=== PATIENT | female | born 1965 | race African-American/Black ===

== ENCOUNTER 2018-09-21 11:43 | Emergency (ER) | payer OTHER ==
[~2018-09-21] VITALS: Ht 157.5 cm; Wt 72.1 kg
[2018-09-21 12:02] VITALS: BP 139/78
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
[2018-09-21] MEDS ORDERED: LEVE500T56 PO (12:07)
== END 2018-09-21 12:10 | disposition home or self-care (01) ==
LOC: ER 11:43
DX: R56.9 Unspecified convulsions (principal); Z76.0 Encounter for issue of repeat prescription; Z00.8 Encounter for other general examination; J44.9 Chronic obstructive pulmonary disease, unspecified; Z91.041 Radiographic dye allergy status
CPT/HCPCS: 99284

== ENCOUNTER 2018-10-17 18:13 | Observation (INO) | payer OTHER ==
[~2018-10-17] VITALS: Ht 154.9 cm; Wt 49.1 kg
[~2018-10-17 18:13] MED LIST: LEVE500T56 PO
[2018-10-17] MEDS ORDERED: IV NORMAL SALINE 1000ML BAG 1,000 ML IV ONE (19:00)
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
[2018-10-17 20:10] LABS: BASO # 0.1 x10^3/uL (0.0-0.2); BASO % 1 % (0-3); EOS # 0.1 x10^3/uL (0.0-0.7); EOS % 1 % (0-3); HEMATOCRIT 44.3 % (36.0-47.0); HEMOGLOBIN 14.4 g/dL (12.0-15.5); LYMPH # 2.9 x10^3/uL (1.0-4.8); LYMPH % 24 % (24-48); MEAN CORPUSCULAR HEMOGLOBIN 30 pg (25-35); MEAN CORPUSCULAR HGB CONC 33 g/dL (31-37); MEAN CORPUSCULAR VOLUME 93 fL (79-100); MONO # 0.6 x10^3/uL (0.0-1.1); MONO % 5 % (0-9); NEUT # 8.1 x10^3uL (1.8-7.7); NEUT % 69 % (31-73); PLATELET COUNT 246 x10^3/uL (140-400); RED BLOOD COUNT 4.75 x10^6/uL (3.50-5.40); WHITE BLOOD COUNT 11.8 x10^3/uL (4.0-11.0)
[2018-10-17 20:18] LABS: BILIRUBIN,URINE NEGATIVE (NEG); CLARITY,URINE CLEAR; COLOR,URINE YELLOW; NITRITE,URINE NEGATIVE (NEG); PROTEIN,URINE NEGATIVE (NEG-TRACE)
[2018-10-17 20:29] LABS: BARBITURATES NEG (NEG); BENZODIAZEPINES NEG (NEG); CANNABINOIDS POS (NEG); COCAINE NEG (NEG); METHADONE NEG (NEG); OPIATES NEG (NEG); PHENCYCLIDINE NEG (NEG)
[2018-10-17 20:30] LABS: HYALINE CASTS, URINE FEW /HPF; RBC,URINE OCC /HPF (0-2); SQUAMOUS EPITHELIAL CELL,UR FEW /LPF
[2018-10-17 20:31] LABS: AMPHETAMINE/METHAMPHETAMINE NEG (NEG); BACTERIA,URINE 0 /HPF (0-FEW); WBC,URINE OCC /HPF (0-4); YEAST,URINE PRESENT /HPF
[2018-10-17 21:02] LABS: CALCIUM 9.4 mg/dL (8.5-10.1); CREATININE 0.7 mg/dL (0.6-1.0); GFR 105.1; POTASSIUM 3.4 mmol/L (3.5-5.1)
[2018-10-17 21:08] LABS: ALBUMIN 3.7 g/dL (3.4-5.0); ALBUMIN/GLOBULIN RATIO 0.8 (1.0-1.7); TOTAL BILIRUBIN 0.3 mg/dL (0.2-1.0); TOTAL PROTEIN 8.3 g/dL (6.4-8.2)
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
[2018-10-18] MEDS ORDERED: HYDROcodone/APAP 5/325MG 1 TAB TABLET PO ONE
[2018-10-18] MEDS ORDERED: ACETAMINOPHEN 325 MG TABLET. PO PRN (01:00)
--- NOTE | 2018-10-18 01:20 | NUR ---
The patient, HUAN HARRELL, 53 y/o, F admitted by CAROLINE PEREYRA MD, was given written information regarding hospital policies, unit procedures and contact persons. Valuables were checked and left with patient. Pt orientated to room, call light, tv, and bathroom. Advised pt to call before getting out of bed.
[2018-10-18 03:00] VITALS: BP 108/63
--- NOTE | 2018-10-18 06:49 | NUR ---
Pt son called and would like a call from the nurse or SW regarding her care. Mr. Dyson is pt POA [phone]
[2018-10-18 07:00] VITALS: BP 115/77
--- NOTE | 2018-10-18 07:09 | EKG ---
[facility] [address] [place] [address] Test Date: 2018-10-17 Test Time: 19:34:18 Pat Name: HUAN HARRELL Department: Room: 538 1 Gender: F Center Medical Specialist: ALONSO : 1965 Requested By: SHADI ELDRIDGE Order Number: [id number] Reading MD: Michael Carlson MD Measurements Intervals [place] Rate: 91 P: 66 VA: 154 QRS: 39 QRSD: 70 T: 69 QT: 358 QTc: 442 Interpretive Statements SINUS RHYTHM Electronically Signed On 10-29-2018 10:04:26 CDT by Michael Carlson MD
--- NOTE | 2018-10-18 08:09 | RAD ---
Left rib series and single view Chest radiograph 10/17/2018 6:51 PM INDICATION: Fall with left rib pain, confusion COMPARISON: May 12, 2015 chest radiograph TECHNIQUE: Single view chest and 2 dedicated views of the left ribs are provided. FINDINGS: The cardiomediastinal silhouette is within normal limits. There are no pleural effusions. There is no pulmonary vascular congestion. There is no pneumothorax. The lungs are clear. No significant osseous abnormality is identified. No acutely displaced left-sided rib fracture is identified. IMPRESSION: No acute cardiopulmonary process. No acutely displaced left-sided rib fracture. Electronically signed by: Alexus Salazar MD (10/18/2018 8:06 AM) [id number]
[2018-10-18] MEDS ORDERED: ONDANSETRON ODT 4 MG TAB.RAPDIS. PO PRN (08:45)
[2018-10-18] MEDS ORDERED: ONDANSETRON PF 4 MG/2 ML VIAL. IV PRN (08:45)
[2018-10-18] MEDS ORDERED: POTASSIUM CHLORIDE 20 MEQ TABLET.ER. PO ONE (09:00)
[2018-10-18] MEDS: levETIRAcetam 500 MG TABLET PO SCH ×2 (09:13→20:05)
[2018-10-18 11:00] VITALS: BP 114/71
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
[2018-10-18] MEDS ORDERED: NICOTINE POLACRILEX 2MG GUM PACKAGE of 12. BC PRN (12:15)
[2018-10-18] MEDS: NICOTINE 21MG PATCH. TD SCH (13:00)
[2018-10-18] MEDS: HYDROcodone/APAP 5/325MG 1 TAB TABLET PO PRN ×2 (13:01→20:05)
[2018-10-18 15:00] VITALS: BP 125/88
--- NOTE | 2018-10-18 15:19 | NUR ---
SW consulted for dc needs. Spoke with pt and son in room who requested NH Placement. She states she has been in a NH a while back for two years and is not sure she is able to take care of herself at home. Son also discussed about concerns about his mother living at home and believes she needs placement. He also reported he is DPOA and will bring paperwork. SW discussed benefits and options. Pt and son agreeable with SW faxing referral to various LTC facilities. Referral faxed to [facility], [facility], [facility], [facility], [facility], and [facility]. Pt admission and acceptance pending. COLUMBA RN and Physician.
--- NOTE | 2018-10-18 16:37 | NUR ---
Pt seen by Chris from [facility] and they reported they will notify SW tomorrow morning regarding finial decision. They stated there is a possibility that they will be able to take her after confirming with administration tomorrow. Will continue to follow.
[2018-10-18 19:00] VITALS: BP 126/80
[2018-10-18 23:00] VITALS: BP 107/58
[2018-10-19 02:50] VITALS: BP 107/64
[2018-10-19 07:00] VITALS: BP 130/77
[2018-10-19] MEDS: NICOTINE 21MG PATCH. TD SCH (09:00)
[2018-10-19] MEDS: levETIRAcetam 500 MG TABLET PO SCH (09:01)
[2018-10-19] MEDS: HYDROcodone/APAP 5/325MG 1 TAB TABLET PO PRN (09:09)
--- NOTE | 2018-10-19 09:26 | NUR ---
IP: Pt's hx of mrsa was in left leg wound in 2012. Pt is now a left leg amputee with no reoccurrence of MDRO's. Flag removed and pt's contact precautions may be discontinued at this time.
--- NOTE | 2018-10-19 10:07 | PDOC ---
PROGRESS NOTES History of Present Illness History of Present Illness Assessment/Plan Assessment/Plan Fall with no injuries Emphysematous lungs in a smoker Positive cannabinoids Leukocytosis with negative signs of infection Mild hypokalemia, replaced Left leg amputee Seizures chronic on Keppra Generalized weakness, fall risk MSK pains Plan: observation status, PT OT, social work consult for the above social needs Counseled her on her cannabinoids cessation and smoking Nicotine patch Rx wheelchair on chart No new home meds DW Rn at bedside d/c today to LTC D/C PLANNING 33 MIN Vitals Vitals Vital Signs Date Time Temp Pulse Resp B/P (MAP) Pulse Ox O2 Delivery O2 Flow Rate FiO2 10/19/18 09:09 14 Room Air 10/19/18 07:00 98.3 75 130/77 (94) 90 98.3 Physical Exam Physical Exam General: Alert, Oriented X3, Cooperative, No acute distress HEENT: Atraumatic, PERRLA, EOMI Lungs: Clear to auscultation, Normal air movement Heart: S1S2, RRR, no thrills, no rubs, no gallops, no murmurs Cardiovascular: S1, S2 General: Alert, Oriented X3, Cooperative, No acute distress Heart: Regular rate Lungs: Clear Abdomen: Normal bowel sounds, Soft, No tenderness, No hepatosplenomegaly, No masses Extremities: Other (left leg amputee) Skin: No rashes, No breakdown, No significant lesion Labs LABS Other Prior Level of Function Information * family reports independent with transfer and w/c mobility, current w/c has only 1 brake working, requesting new w/c, completes dressing,toileting, and bathing independently with 1 assist for transfer out of tub, pt interested in transfer to a facility that provides increased level of care Level of Consciousness * Alert Follows Direction * Complex Behavior * Cooperative Activity Tolerance/ Vitals * no signs or symptoms of distress Strength * Pt able to stand, povot and hop on right LE Sitting Balance * 5 moves >2" all planes Standing Balance * 2+ balances w/one UE Pain Location * pain management via RN and physician Transfer Assistance Required * Independent Transfer Type * Stand-Step Transfer Comments * Pt independent with transfers and able to take several hops and pivots to get to chair across form her. Pt is functioning grossly at baseline. Pt will need a new wheelchair or will need hers repaired as she reports that hers is broken. Clinical Presentation * Stable Evaluation Complexity Level * Low Complexity Pt/caregiver agrees with plan of care/goals * Yes Patient condition at conclusion of therapy * Pt in bed * Call light in reach * Phone in reach * PtIn no apparent distress * Pt denies further needs No Further Skilled P.T. Intervention Required * Eval only-No PT Needs Discharge Recommendations * Home with Assistance * Assisted Living Discharge Recommendation - DME * Wheelchair Assessment and Plan Assessmemt and Plan Problems Medical Problems: (1) Case management patient Status: Acute (2) Fall Status: Acute Comment Review of Relevant I have reviewed the following items edward (where applicable) has been applied. Labs Laboratory Tests Test 10/17/18 20:02 10/17/18 20:07 10/17/18 20:30 White Blood Count 11.8 x10^3/uL (4.0-11.0) Red Blood Count 4.75 x10^6/uL (3.50-5.40) Hemoglobin 14.4 g/dL (12.0-15.5) Hematocrit 44.3 % (36.0-47.0) Mean Corpuscular Volume 93 fL (79-100) Mean Corpuscular Hemoglobin 30 pg (25-35) Mean Corpuscular Hemoglobin Concent 33 g/dL (31-37) Red Cell Distribution Width 15.0 % (11.5-14.5) Platelet Count 246 x10^3/uL (140-400) Neutrophils (%) (Auto) 69 % (31-73) Lymphocytes (%) (Auto) 24 % (24-48) Monocytes (%) (Auto) 5 % (0-9) Eosinophils (%) (Auto) 1 % (0-3) Basophils (%) (Auto) 1 % (0-3) Neutrophils # (Auto) 8.1 x10^3uL (1.8-7.7) Lymphocytes # (Auto) 2.9 x10^3/uL (1.0-4.8) Monocytes # (Auto) 0.6 x10^3/uL (0.0-1.1) Eosinophils # (Auto) 0.1 x10^3/uL (0.0-0.7) Basophils # (Auto) 0.1 x10^3/uL (0.0-0.2) Urine Collection Type Unknown Urine Color Yellow Urine Clarity Clear Urine pH 6.0 Urine Specific [place] 1.025 Urine Protein Negative mg/dL (NEG-TRACE) Urine Glucose (UA) Negative mg/dL (NEG) Urine Ketones (Stick) Negative mg/dL (NEG) Urine Blood Negative (NEG) Urine Nitrite Negative (NEG) Urine Bilirubin Negative (NEG) Urine Urobilinogen Dipstick 1.0 mg/dL (0.2 mg/dL) Urine Leukocyte Esterase Negative (NEG) Urine RBC Occ /HPF (0-2) Urine WBC Occ /HPF (0-4) Urine Squamous Epithelial Cells Few /LPF Urine Bacteria 0 /HPF (0-FEW) Urine Hyaline Casts Few /HPF Urine Mucus Mod /LPF Urine Yeast Present /HPF Urine Opiates Screen Neg (NEG) Urine Methadone Screen Neg (NEG) Urine Barbiturates Neg (NEG) Urine Phencyclidine Screen Neg (NEG) Urine Amphetamine/Methamphetamine Neg (NEG) Urine Benzodiazepines Screen Neg (NEG) Urine Cocaine Screen Neg (NEG) Urine Cannabinoids Screen Pos (NEG) Urine Ethyl Alcohol Neg (NEG) Sodium Level 137 mmol/L (136-145) Potassium Level 3.4 mmol/L (3.5-5.1) Chloride Level 100 mmol/L (98-107) Carbon Dioxide Level 26 mmol/L (21-32) Anion Gap 11 (6-14) Blood Urea Nitrogen 14 mg/dL (7-20) Creatinine 0.7 mg/dL (0.6-1.0) Estimated GFR (Cockcroft-Gault) 105.1 BUN/Creatinine Ratio 20 (6-20) Glucose Level 86 mg/dL (70-99) Calcium Level 9.4 mg/dL (8.5-10.1) Magnesium Level 2.0 mg/dL (1.8-2.4) Total Bilirubin 0.3 mg/dL (0.2-1.0) Aspartate Amino Transf (AST/SGOT) 15 U/L (15-37) Alanine Aminotransferase (ALT/SGPT) 17 U/L (14-59) Alkaline Phosphatase 103 U/L (46-116) Troponin I Quantitative < 0.017 ng/mL (0.000-0.055) Total Protein 8.3 g/dL (6.4-8.2) Albumin 3.7 g/dL (3.4-5.0) Albumin/Globulin Ratio 0.8 (1.0-1.7) Ethyl Alcohol Level < 10 mg/dL (0-10) Medications Current Medications Sodium Chloride 1,000 ml @ 1,000 mls/hr 1X ONCE IV Last administered on at 20:38; Start 10/17/18 at 19:00; Stop 10/17/18 at 19:59; Status DC Acetaminophen/ Hydrocodone Bitart (Lortab 5/325) 1 tab 1X ONCE PO Last administered on 10/18/18at 00:48; Start 10/18/18 at 00:00; Stop 10/18/18 at 00:01 ; Status DC Acetaminophen (Tylenol) 650 mg PRN Q4HRS PRN PO MILD PAIN; Start 10/18/18 at 01 :00; Stop 10/19/18 at 00:59; Status DC Ondansetron HCl (Zofran) 4 mg PRN Q6HRS PRN IV NAUSEA/VOMITING; Start 10/18/18 at 08:45 Ondansetron HCl (Zofran Odt) 4 mg PRN Q6HRS PRN PO NAUSEA/VOMITING; Start 10/18 at 08:45 Acetaminophen/ Hydrocodone Bitart (Lortab 5/325) 1 tab PRN Q4HRS PRN PO PAIN Last administered on 10/19/18at 09:09; Start 10/18/18 at 08:45 Potassium Chloride (Klor-Con) 40 meq 1X ONCE PO Last administered on at 09:13; Start 10/18/18 at 09:00; Stop 10/18/18 at 09:01; Status DC Levetiracetam (Keppra) 500 mg BID PO Last administered on 10/19/18at 09:01; Start 10/18/18 at 09:00 Nicotine (Nicoderm Cq 21mg) 1 patch DAILY TD Last administered on 10/18/18at 13: 00; Start 10/18/18 at 12:15 Nicotine Polacrilex (Nicorette Gum) 1 each PRN Q1HR PRN BC SMOKING CESSATION; Start 10/18/18 at 12:15 Active Scripts Active Keppra (Levetiracetam) 500 Mg Tablet 1 Tab PO BID 7 Days Reported No Known Medications Prior To Admisstion (Info) Each 1 Each MC Vitals/I & O Vital Sign - Last 24 Hours 10/18/18 10/18/18 10/18/18 10/18/18 11:00 13:01 15:00 19:00 Temp 98.4 98.8 98.9 98.4 98.8 98.9 Pulse 78 86 73 Resp 20 20 18 B/P (MAP) 114/71 (85) 125/88 (100) 126/80 (95) Pulse Ox 93 92 92 O2 Delivery Room Air Room Air Room Air Room Air 10/18/18 10/18/18 10/18/18 10/18/18 20:05 20:15 21:00 23:00 Temp 98.4 98.4 Pulse 67 Resp 18 B/P (MAP) 107/58 (74) Pulse Ox 90 O2 Delivery Room Air Room Air Room Air Room Air 10/19/18 10/19/18 10/19/18 02:50 07:00 09:09 Temp 98.3 98.3 98.3 98.3 Pulse 69 75 Resp 18 18 14 B/P (MAP) 107/64 (78) 130/77 (94) Pulse Ox 90 90 O2 Delivery Room Air Room Air Room Air Intake and Output 10/18/18 10/18/18 10/19/18 15:00 23:00 07:00 Intake Total 240 ml 120 ml 0 ml Balance 240 ml 120 ml 0 ml OH ORTIZ MD Oct 19, 2018 10:07
[2018-10-19 11:00] VITALS: BP 140/75
[2018-10-19] MEDS ORDERED: POTASSIUM CHLORIDE 20 MEQ TABLET.ER. PO ONE (11:00)
--- NOTE | 2018-10-19 11:19 | PDOC3 ---
Discharge Summary Date of Admission: Oct 17, 2018 Date of Discharge: Oct 19, 2018 Follow-Up: 1-2 days Admitting Diagnosis comment: DISCHARGE DX Assessment/Plan Fall with no injuries Emphysematous lungs in a smoker Positive cannabinoids Leukocytosis with negative signs of infection Mild hypokalemia, replaced Left leg amputee Seizures chronic on Keppra Generalized weakness, fall risk MSK pains Plan: observation status, PT OT, social work consult for the above social needs Counseled her on her cannabinoids cessation and smoking Nicotine patch Rx wheelchair on chart No new home meds d/c today to LTC D/C PLANNING 33 MIN Vitals Vitals Vital Signs Date Time Temp Pulse Resp B/P (MAP) Pulse Ox O2 Delivery O2 Flow Rate FiO2 10/19/18 09:09 14 Room Air 10/19/18 07:00 98.3 75 130/77 (94) 90 98.3 Physical Exam Physical Exam General: Alert, Oriented X3, Cooperative, No acute distress HEENT: Atraumatic, PERRLA, EOMI Lungs: Clear to auscultation, Normal air movement Heart: S1S2, RRR, no thrills, no rubs, no gallops, no murmurs Cardiovascular: S1, S2 General: Alert, Oriented X3, Cooperative, No acute distress Heart: Regular rate Lungs: Clear Abdomen: Normal bowel sounds, Soft, No tenderness, No hepatosplenomegaly, No masses Extremities: Other (left leg amputee) Skin: No rashes, No breakdown, No significant lesion Labs LABS Other Prior Level of Function Information * family reports independent with transfer and w/c mobility, current w/c has only 1 brake working, requesting new w/c, completes dressing,toileting, and bathing independently with 1 assist for transfer out of tub, pt interested in transfer to a facility that provides increased level of care Level of Consciousness * Alert Follows Direction * Complex Behavior * Cooperative Activity Tolerance/ Vitals * no signs or symptoms of distress Strength * Pt able to stand, povot and hop on right LE Sitting Balance * 5 moves >2" all planes Standing Balance * 2+ balances w/one UE Pain Location * pain management via RN and physician Transfer Assistance Required * Independent Transfer Type * Stand-Step Transfer Comments * Pt independent with transfers and able to take several hops and pivots to get to chair across form her. Pt is functioning grossly at baseline. Pt will need a new wheelchair or will need hers repaired as she reports that hers is broken. Clinical Presentation * Stable Evaluation Complexity Level * Low Complexity Pt/caregiver agrees with plan of care/goals * Yes Patient condition at conclusion of therapy * Pt in bed * Call light in reach * Phone in reach * PtIn no apparent distress * Pt denies further needs No Further Skilled P.T. Intervention Required * Eval only-No PT Needs Discharge Recommendations * Home with Assistance * Assisted Living Discharge Recommendation - DME * Wheelchair FINAL DIAGNOSIS Problems Medical Problems: (1) Case management patient Status: Acute (2) Fall Status: Acute Brief Hospital Course Ms. Fajardo is a 53 old [sex] who presented with [ FALLS] CONDITION AT DISCHARGE: Improved Discharge Medications Current Medications Sodium Chloride 1,000 ml @ 1,000 mls/hr 1X ONCE IV Last administered on at 20:38; Start 10/17/18 at 19:00; Stop 10/17/18 at 19:59; Status DC Acetaminophen/ Hydrocodone Bitart (Lortab 5/325) 1 tab 1X ONCE PO Last administered on 10/18/18at 00:48; Start 10/18/18 at 00:00; Stop 10/18/18 at 00:01 ; Status DC Acetaminophen (Tylenol) 650 mg PRN Q4HRS PRN PO MILD PAIN; Start 10/18/18 at 01 :00; Stop 10/19/18 at 00:59; Status DC Ondansetron HCl (Zofran) 4 mg PRN Q6HRS PRN IV NAUSEA/VOMITING; Start 10/18/18 at 08:45 Ondansetron HCl (Zofran Odt) 4 mg PRN Q6HRS PRN PO NAUSEA/VOMITING; Start 10/18 at 08:45 Acetaminophen/ Hydrocodone Bitart (Lortab 5/325) 1 tab PRN Q4HRS PRN PO PAIN Last administered on 10/19/18at 09:09; Start 10/18/18 at 08:45 Potassium Chloride (Klor-Con) 40 meq 1X ONCE PO Last administered on at 09:13; Start 10/18/18 at 09:00; Stop 10/18/18 at 09:01; Status DC Levetiracetam (Keppra) 500 mg BID PO Last administered on 10/19/18at 09:01; Start 10/18/18 at 09:00 Nicotine (Nicoderm Cq 21mg) 1 patch DAILY TD Last administered on 10/18/18at 13: 00; Start 10/18/18 at 12:15 Nicotine Polacrilex (Nicorette Gum) 1 each PRN Q1HR PRN BC SMOKING CESSATION; Start 10/18/18 at 12:15 Potassium Chloride (Klor-Con) 40 meq 1X ONCE PO ; Start 10/19/18 at 11:00; Stop 10/19/18 at 11:01; Status DC Potassium Chloride (Klor-Con) 20 meq DAILYWBKFT PO ; Start 10/20/18 at 08:00 Active Scripts Active Keppra (Levetiracetam) 500 Mg Tablet 1 Tab PO BID 7 Days Reported No Known Medications Prior To Admisstion (Info) Each 1 Each Vital Signs Vital Signs Date Time Temp Pulse Resp B/P (MAP) Pulse Ox O2 Delivery O2 Flow Rate FiO2 10/19/18 09:09 14 Room Air 10/19/18 07:00 98.3 75 130/77 (94) 90 98.3 Labs Laboratory Tests Test 10/17/18 20:02 10/17/18 20:07 10/17/18 20:30 White Blood Count 11.8 x10^3/uL (4.0-11.0) Red Blood Count 4.75 x10^6/uL (3.50-5.40) Hemoglobin 14.4 g/dL (12.0-15.5) Hematocrit 44.3 % (36.0-47.0) Mean Corpuscular Volume 93 fL (79-100) Mean Corpuscular Hemoglobin 30 pg (25-35) Mean Corpuscular Hemoglobin Concent 33 g/dL (31-37) Red Cell Distribution Width 15.0 % (11.5-14.5) Platelet Count 246 x10^3/uL (140-400) Neutrophils (%) (Auto) 69 % (31-73) Lymphocytes (%) (Auto) 24 % (24-48) Monocytes (%) (Auto) 5 % (0-9) Eosinophils (%) (Auto) 1 % (0-3) Basophils (%) (Auto) 1 % (0-3) Neutrophils # (Auto) 8.1 x10^3uL (1.8-7.7) Lymphocytes # (Auto) 2.9 x10^3/uL (1.0-4.8) Monocytes # (Auto) 0.6 x10^3/uL (0.0-1.1) Eosinophils # (Auto) 0.1 x10^3/uL (0.0-0.7) Basophils # (Auto) 0.1 x10^3/uL (0.0-0.2) Urine Collection Type Unknown Urine Color Yellow Urine Clarity Clear Urine pH 6.0 Urine Specific [place] 1.025 Urine Protein Negative mg/dL (NEG-TRACE) Urine Glucose (UA) Negative mg/dL (NEG) Urine Ketones (Stick) Negative mg/dL (NEG) Urine Blood Negative (NEG) Urine Nitrite Negative (NEG) Urine Bilirubin Negative (NEG) Urine Urobilinogen Dipstick 1.0 mg/dL (0.2 mg/dL) Urine Leukocyte Esterase Negative (NEG) Urine RBC Occ /HPF (0-2) Urine WBC Occ /HPF (0-4) Urine Squamous Epithelial Cells Few /LPF Urine Bacteria 0 /HPF (0-FEW) Urine Hyaline Casts Few /HPF Urine Mucus Mod /LPF Urine Yeast Present /HPF Urine Opiates Screen Neg (NEG) Urine Methadone Screen Neg (NEG) Urine Barbiturates Neg (NEG) Urine Phencyclidine Screen Neg (NEG) Urine Amphetamine/Methamphetamine Neg (NEG) Urine Benzodiazepines Screen Neg (NEG) Urine Cocaine Screen Neg (NEG) Urine Cannabinoids Screen Pos (NEG) Urine Ethyl Alcohol Neg (NEG) Sodium Level 137 mmol/L (136-145) Potassium Level 3.4 mmol/L (3.5-5.1) Chloride Level 100 mmol/L (98-107) Carbon Dioxide Level 26 mmol/L (21-32) Anion Gap 11 (6-14) Blood Urea Nitrogen 14 mg/dL (7-20) Creatinine 0.7 mg/dL (0.6-1.0) Estimated GFR (Cockcroft-Gault) 105.1 BUN/Creatinine Ratio 20 (6-20) Glucose Level 86 mg/dL (70-99) Calcium Level 9.4 mg/dL (8.5-10.1) Magnesium Level 2.0 mg/dL (1.8-2.4) Total Bilirubin 0.3 mg/dL (0.2-1.0) Aspartate Amino Transf (AST/SGOT) 15 U/L (15-37) Alanine Aminotransferase (ALT/SGPT) 17 U/L (14-59) Alkaline Phosphatase 103 U/L (46-116) Troponin I Quantitative < 0.017 ng/mL (0.000-0.055) Total Protein 8.3 g/dL (6.4-8.2) Albumin 3.7 g/dL (3.4-5.0) Albumin/Globulin Ratio 0.8 (1.0-1.7) Ethyl Alcohol Level < 10 mg/dL (0-10) Allergies Allergies Coded Allergies Type Severity Reaction Last Updated Verified No Known Medication Allergies Allergy Unknown 05/13/15 No Disposition/Orders: Other (D/C LTC ) Patient Instructions D/C PLANNING 33 MIN OH ORTIZ MD Oct 19, 2018 11:19
--- NOTE | 2018-10-19 11:23 | SNU/HH DC ---
DISCHARGE ORDERS DISCHARGE INFORMATION: FINAL DIAGNOSIS Problems Medical Problems: (1) Case management patient Status: Acute (2) Fall Status: Acute CONDITION ON DISCHARGE: Stable CODE STATUS: Code Status: Full [facility]: SNF STAY <30 DAYS: No HOSPICE: HOSPICE: No HOSPICE EVAL & TREAT: No LTAC: ADMIT TO LTAC: No POST DISCHARGE ORDERS: ACTIVITY ORDERS: Activity as tolerated WEIGHT BEARING STATUS: As tolerated DIET AFTER DISCHARGE: Cardiac CHECKS AFTER DISCHARGE: CHECKS AFTER DISCHARGE: Check blood press - daily TREATMENT/EQUIPMENT ORDERS: ADAPTIVE EQUIPMENT NEEDED: Wheelchair Physical Therapy For: Evalulation/Treatment Occupational Therapy For: Evaluation/Treatment DISCHARGE MEDICATIONS: Home Meds Active Scripts Levetiracetam (KEPPRA) 500 Mg Tablet, 1 TAB PO BID for 7 Days, #14 TAB 5 Refills Prov:[place]Y [place] [employer]ER GAGER 09/21/18 Reported Medications Info (NO KNOWN MEDICATIONS PRIOR TO ADMISSTION) Each, 1 EACH , EACH 03/15/15 OH ORTIZ MD Oct 19, 2018 11:23
--- NOTE | 2018-10-19 13:11 | NUR ---
SW following pt. Pt has been accepted at [facility] and [facility]. Pt and son chose [facility]. SW phoned and faxed orders/CARE assessment to [facility], phone: [phone], fax: [phone]. Pt will transport via facility w/c van between [id number]. Pt and pt's son aware of plan and agreeable. COLUMBA VALERA.
--- NOTE | 2018-10-19 15:20 | NUR ---
Pt heard by nursing staff at nursing station saying "I fell." Pt found in room on floor appprox 1420 in seated position talking on telephone. Pt on phone and attempted to use BSC without calling for assistance Pt assisted to commode and back to bed. Reminded to use call light and set bed alarm. Vitals at 1100 140/75 70 HR 16 RR 90% . Vitals at 1430 121/74 97 HR 16 RR 90%. No apparent injury. Dr. Mcclain notified and pt ok to discharge as planned. Pt picked up by transportation and taken to [facility].
--- NOTE | 2018-10-19 15:31 | NUR ---
Discharge Note: TAWNYA HARRELL Discharge instructions and discharge home medications reviewed with Other facility and a copy given. All questions have been answered and understanding verbalized. The following instructions and handouts were given: Discontinued lines and drains: Peripheral IV intact. [facility] by [facility].
[2018-10-20] MEDS ORDERED: POTASSIUM CHLORIDE 20 MEQ TABLET.ER. PO SCH (08:00)
== END 2018-10-19 15:37 ==
LOC: ER 18:13 → 5 NORTH 23:50
PROVIDERS: ADMIT Internal Medicine; ATTEND Internal Medicine
DX: R56.9 Unspecified convulsions (principal); R53.1 Weakness; E87.6 Hypokalemia; D72.829 Elevated white blood cell count, unspecified; F17.210 Nicotine dependence, cigarettes, uncomplicated; Z59.0 Homelessness; Z89.612 Acquired absence of left leg above knee; Z90.710 Acquired absence of both cervix and uterus; Z91.81 History of falling; W01.0XXA Fall on same level from slipping, tripping and stumbling without subsequent striking against object, initial encounter; J44.9 Chronic obstructive pulmonary disease, unspecified; F41.9 Anxiety disorder, unspecified; G31.09 Other frontotemporal neurocognitive disorder; I73.9 Peripheral vascular disease, unspecified; G93.89 Other specified disorders of brain; F02.80 Dementia in other diseases classified elsewhere, unspecified severity, without behavioral disturbance, psychotic disturbance, mood disturbance, and anxiety; J32.9 Chronic sinusitis, unspecified; R21 Rash and other nonspecific skin eruption; B02.9 Zoster without complications
CPT/HCPCS: 36415; 70450; 71045; 71100; 72125; 80053; 80307; 81001; 83735; 84484; 85025; 93005; 97161; 97166; 99284; G0378; G0480; J7030; G0379

== ENCOUNTER 2019-02-10 08:40 | Emergency (ER) | payer OTHER ==
[~2019-02-10] VITALS: Ht 162.6 cm; Wt 59.0 kg
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
--- NOTE | 2019-02-10 09:46 | RAD ---
PQRS Compliance Statement: One or more of the following individualized dose reduction techniques were utilized for this examination: 1. Automated exposure control 2. Adjustment of the mA and/or kV according to patient size 3. Use of iterative reconstruction technique CT thoracic spine without contrast February 10, 2019 INDICATION: Fall, mid back pain. COMPARISON: None available. TECHNIQUE: Multiple axial CT images of the thoracic spine were obtained without intravenous contrast. Coronal and sagittal reformats are provided. FINDINGS: Alignment of the thoracic spine is normal. There is superior plate compression fracture at T11 with 15 percent height loss and superior Schmorl's node. No retropulsion is identified. There is no epidural hematoma. No paraspinal hematoma. Disc heights are maintained. Spinous processes appear intact. There is trace left pleural effusion with left basilar subsegmental atelectasis. There may be a nondisplaced fracture involving the left posterior 10th rib. Heart size is within normal limits. Thoracic aorta is normal in course and caliber. Mild centrilobular pulmonary emphysema. No suspicious solid noncalcified pulmonary nodules. Visualized portions of the upper abdomen appear normal. IMPRESSION: 1. Superior plate compression fracture of T11 with 15 percent height loss. No significant retropulsion or epidural hematoma. 2. Nondisplaced fracture involving the left posterior 10th rib. There is subsegmental atelectasis in the left lung base with trace left pleural effusion. Electronically signed by: Alexus Salazar MD (02/10/2019 9:43 AM) [facility]
[2019-02-10] MEDS ORDERED: HYDR-3164 PO (10:00)
[2019-02-10 10:18] VITALS: BP 108/62
== END 2019-02-10 12:02 | disposition home or self-care (01) ==
LOC: ER 08:40
DX: S22.32XA Fracture of one rib, left side, initial encounter for closed fracture (principal); S22.088A Other fracture of T11-T12 vertebra, initial encounter for closed fracture; M54.2 Cervicalgia; M25.561 Pain in right knee; F41.9 Anxiety disorder, unspecified; J44.9 Chronic obstructive pulmonary disease, unspecified; Z90.710 Acquired absence of both cervix and uterus; Y04.8XXA Assault by other bodily force, initial encounter; Y93.89 Activity, other specified; Y92.129 Unspecified place in nursing home as the place of occurrence of the external cause; Y99.8 Other external cause status
CPT/HCPCS: 70450; 71045; 72125; 72128; 73562; 99284

== ENCOUNTER 2019-03-28 20:27 | Emergency (ER) | payer OTHER ==
[~2019-03-28] VITALS: Ht 149.9 cm; Wt 59.0 kg
[~2019-03-28 20:27] MED LIST changes: +HYDR-3164 PO
[2019-03-28] MEDS ORDERED: IV NORMAL SALINE 1000ML BAG 1,000 ML IV ONE (21:45)
[2019-03-28 22:30] VITALS: BP 144/88
[2019-03-28] MEDS ORDERED: PRED20TA PO (23:44)
[2019-03-28] MEDS ORDERED: ALBU2.5V8 INH (23:44)
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
--- NOTE | 2019-03-29 06:47 | EKG ---
[facility] [address] [place] [address] Test Date: 2019-03-28 Test Time: 21:58:02 Pat Name: HUAN HARRELL Department: Room: Gender: F Web Designer: : 1965 Requested By: FEDERICO WOODS Order Number: [id number] Reading MD: Measurements Intervals [place] Rate: 105 P: 66 MS: 124 QRS: 69 QRSD: 72 T: 74 QT: 348 QTc: 464 Interpretive Statements SINUS TACHYCARDIA OTHERWISE NORMAL ECG RI6.01 No previous ECG available for comparison
--- NOTE | 2019-03-29 06:55 | RAD ---
AP chest x-ray HISTORY: Weakness. COMPARISON: Chest x-ray February 10, 2019. FINDINGS: Heart size normal. Enlargement of the main pulmonary artery silhouette similar the prior study may indicate pulmonary artery hypertension. Aortic arch calcified plaque. No pneumothorax, pulmonary opacities or pleural effusions. Bones are unremarkable. IMPRESSION: No acute process. Electronically signed by: Prasanth Schaeffer MD (03/29/2019 6:52 AM) [facility]
== END 2019-03-28 23:56 | disposition home or self-care (01) ==
LOC: ER 20:27
DX: J20.9 Acute bronchitis, unspecified (principal); R53.1 Weakness; Z89.612 Acquired absence of left leg above knee
CPT/HCPCS: 71045; 93005; 99284

== ENCOUNTER 2019-03-29 20:28 | Inpatient (IN) | payer OTHER ==
[~2019-03-29] VITALS: Ht 154.9 cm; Wt 65.5 kg
[~2019-03-29 20:28] MED LIST changes: +ALBU2.5V8 INH; +PRED20TA PO
[2019-03-29 21:55] LABS: BASO # 0.1 x10^3/uL (0.0-0.2); BASO % 1 % (0-3); EOS # 0.2 x10^3/uL (0.0-0.7); EOS % 2 % (0-3); HEMOGLOBIN 15.5 g/dL (12.0-15.5); LYMPH # 2.5 x10^3/uL (1.0-4.8); LYMPH % 24 % (24-48); MEAN CORPUSCULAR HEMOGLOBIN 30 pg (25-35); MEAN CORPUSCULAR HGB CONC 34 g/dL (31-37); MEAN CORPUSCULAR VOLUME 90 fL (79-100); MONO # 0.7 x10^3/uL (0.0-1.1); MONO % 6 % (0-9); NEUT # 6.8 x10^3/uL (1.8-7.7); NEUT % 67 % (31-73); PLATELET COUNT 201 x10^3/uL (140-400); RED BLOOD COUNT 5.15 x10^6/uL (3.50-5.40); RED CELL DISTRIBUTION WIDTH 14.2 % (11.5-14.5); WHITE BLOOD COUNT 10.3 x10^3/uL (4.0-11.0)
[2019-03-29 22:03] LABS: BARBITURATES NEG (NEG); BENZODIAZEPINES NEG (NEG); CANNABINOIDS POS (NEG); COCAINE POS (NEG); METHADONE NEG (NEG); OPIATES NEG (NEG); PHENCYCLIDINE NEG (NEG)
[2019-03-29 22:04] LABS: CALCIUM 9.4 mg/dL (8.5-10.1); CREATININE 0.6 mg/dL (0.6-1.0); GFR 125.6; POTASSIUM 3.2 mmol/L (3.5-5.1)
[2019-03-29 22:05] LABS: AMPHETAMINE/METHAMPHETAMINE POS (NEG)
[2019-03-29 22:10] LABS: ALBUMIN 3.4 g/dL (3.4-5.0); ALBUMIN/GLOBULIN RATIO 0.7 (1.0-1.7); TOTAL BILIRUBIN 0.5 mg/dL (0.2-1.0)
[2019-03-29] MEDS ORDERED: ONDANSETRON PF 4 MG/2 ML VIAL. IV PRN (22:30)
[2019-03-29] MEDS ORDERED: LACOSAMIDE 100 MG in IV DEXTROSE 5% 50 ML IV ONE (22:45)
--- NOTE | 2019-03-30 01:24 | RAD ---
AP chest x-ray HISTORY: Shortness of breath. COMPARISON: Chest x-ray March 28, 2019 and priors back to 2015 FINDINGS: Heart size normal. Enlargement of the main pulmonary artery silhouette is stable to prior studies. Aortic arch calcified plaque. No pneumothorax, pulmonary opacities or pleural effusions. Bones are unremarkable. IMPRESSION: No acute process. Electronically signed by: Prasanth Schaeffer MD (03/30/2019 1:21 AM) [facility]
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
[2019-03-30] MEDS ORDERED: predniSONE 20 MG TABLET PO ONE (03:30)
[2019-03-30] MEDS ORDERED: IPRATRPIUM/ALBUTEROL 0.5/2.5MG 3 ML NEBU. NEB ONE (03:30)
[2019-03-30] MEDS ORDERED: ONDANSETRON PF 4 MG/2 ML VIAL. IV PRN (03:30)
[2019-03-30 05:00] VITALS: BP 128/81
[2019-03-30] MEDS: IV NORMAL SALINE 1000ML BAG 1,000 ML IV SCH ×3 (05:28→21:01)
[2019-03-30] MEDS ORDERED: cefTRIAXone IV Push 1 GM VIAL. IVP ONE (05:30)
[2019-03-30 07:00] VITALS: BP 102/66
[2019-03-30] MEDS ORDERED: IPRATRPIUM/ALBUTEROL 0.5/2.5MG 3 ML NEBU. NEB SCH (08:00)
[2019-03-30] MEDS: IPRATRPIUM/ALBUTEROL 0.5/2.5MG 3 ML NEBU. NEB SCH ×5 (08:34→18:16)
[2019-03-30] MEDS: predniSONE 20 MG TABLET PO SCH (09:00)
[2019-03-30] MEDS ORDERED: POTASSIUM CHLORIDE 20 MEQ TABLET.ER. PO ONE (09:00)
[2019-03-30] MEDS ORDERED: HALOPERIDOL LACTATE 5 MG/ML VIAL. IM ONE (10:00)
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
--- NOTE | 2019-03-30 10:46 | EKG ---
[facility] [address] [place] [address] Test Date: 2019-03-29 Test Time: 20:57:03 Pat Name: HUAN HARRELL Department: Room: Gender: F Career Education Teacher: : 1965 Requested By: CAROLINA YUNG Order Number: [id number] Reading MD: Measurements Intervals [place] Rate: 103 P: 71 IA: 140 QRS: 56 QRSD: 72 T: 74 QT: 354 QTc: 466 Interpretive Statements SINUS TACHYCARDIA OTHERWISE NORMAL ECG RI6.01 Unconfirmed report No previous ECG available for comparison
[2019-03-30 11:00] VITALS: BP 134/84
--- NOTE | 2019-03-30 11:06 | NUR ---
NN [phone] Son calling for information,no HIPPA number. Informed of purpose but too irate/ angry / hostile to calm down to understand. Reported same issues as last night when son brought her in to there and on the ICU. Multimedia Producer aware of situation. Patient somnolent initially but aware suddenly w extreme overt hostility,lack of rational, profanity, and other tantrum like behavior because she wants what she wants when she wants it( food). Dr Fowler notified/ order changes noted. Able to eat independently-Haldol x1 per order. PAT team in ,patient "too sleepy " to answer needed questions. Tobias (other) is payee but IS NOT DPOA at tis time . Trying to legally obtain that paper work at this time. Informed of HIPPA # need for further information . Patient gave verbal consent to give info to son and Tobias. Calmed /Haldol x1. 1200 Somnolent
--- NOTE | 2019-03-30 14:26 | PDOC1 ---
History and Physical Date of Admission Date of Admission DATE: 03/30/19 TIME: 14:20 History of Present Illness History of Present Illness Ms. Fajardo, is a 53 year old [place] female with history of chronic brain injury, frontal lobe dementia, homelessness and polysubstance abuse who presents with HI an outside. Patient states she has plans on off to other sick, across her path. Denies no specific target other than herself. Reports routine alcohol or tobacco use. Denies illicit drugs. Patient recently taken out of prison to stay with boyfriend and is reportedly around bad influences. Recent bronchitis. Seen in this ED last night for the same. No other acute symptoms or complaints. [] Past Medical History Cardiovascular: No pertinent hx, Other Pulmonary: COPD CENTRAL NERVOUS SYSTEM: Dementia, Seizure GI: No pertinent hx Heme/Onc: No pertinent hx Hepatobiliary: No pertinent hx Psych: No pertinent hx Rheumatologic: No pertinent hx Infectious disease: No pertinent hx Renal/: No pertinent hx Endocrine: No pertinent hx Past Surgical History Past Surgical History: Hysterectomy, Other Family History Family History: Family History Unknown Social History Smoke: <1 pack per day ALCOHOL: heavy Drugs: Cocaine, Marijuana, Crystal meth Current Problem List Problem List Problems Medical Problems: (1) Bronchitis, acute, with bronchospasm Status: Acute (2) Suicidal ideation Status: Acute Current Medications Current Medications Current Medications Ondansetron HCl (Zofran) 4 mg PRN Q8HRS PRN IV NAUSEA/VOMITING; Start 03/29/19 at 22:30; Stop 03/30/19 at 22:29; Status Cancel Lacosamide 100 mg/ Dextrose 60 ml @ 120 mls/hr 1X ONCE IV ; Start 03/29/19 at 22:45; Stop 03/29/19 at 23:14; Status Cancel Lorazepam (Ativan Inj) 2 mg 1X PRN IV seizure; Start 03/29/19 at 22:30; Status Cancel Albuterol/ Ipratropium (Duoneb) 3 ml 1X ONCE NEB ; Start 03/30/19 at 03:30; Stop 03/30/19 at 03:31; Status DC Prednisone (Prednisone) 60 mg 1X ONCE PO Last administered on 03/30/19at 05:29; Start 03/30/19 at 03:30; Stop 03/30/19 at 03:31; Status DC Ondansetron HCl (Zofran) 4 mg PRN Q8HRS PRN IV NAUSEA/VOMITING; Start 03/30/19 at 03:30; Stop 03/31/19 at 03:29 Sodium Chloride 1,000 ml @ 125 mls/hr Q8H IV Last administered on 03/30/19at 12:51; Start 03/30/19 at 03:30; Stop 03/31/19 at 03:29 Albuterol/ Ipratropium (Duoneb) 3 ml RTQID NEB Last administered on 03/30/19at 08:34; Start 03/30/19 at 08:00; Stop 03/30/19 at 08:55; Status DC Ceftriaxone Sodium (Rocephin) 1 gm 1X ONCE IVP Last administered on 03/30/19at 05:29; Start 03/30/19 at 05:30; Stop 03/30/19 at 05:31; Status DC Albuterol/ Ipratropium (Duoneb) 3 ml Q4HRS W/A NEB Last administered on 03/30/19at 12:03; Start 03/30/19 at 09:00; Stop 03/31/19 at 08:59 Potassium Chloride (Klor-Con) 40 meq 1X ONCE PO ; Start 03/30/19 at 09:00; Stop 03/30/19 at 09:02; Status DC Prednisone (Prednisone) 40 mg DAILY PO ; Start 03/30/19 at 09:00 Haloperidol Lactate (Haldol Inj) 5 mg 1X ONCE IM ; Start 03/30/19 at 10:00; Stop 03/30/19 at 10:01; Status DC Active Scripts Active Prednisone 20 Mg Tablet 2 Tab PO DAILY Start this prescription tomorrow, Monday03/29/19 Proair Hfa Inhaler (Albuterol Sulfate) 8.5 Gm Hfa.aer.ad 1 Puff INH PRN Q6HRS PRN Custer 5-325 Tablet (Acetaminophen/Hydrocodone Bitart) 1 Each Tablet 1 Tab PO PRN Q6HRS PRN No drinking alcohol while taking this medication Keppra (Levetiracetam) 500 Mg Tablet 1 Tab PO BID 7 Days Reported No Known Medications Prior To Admisstion (Info) Each 1 Each Allergies Allergies: Coded Allergies: No Known Medication Allergies (Unverified Allergy, Unknown, 05/13/15) ROS General: YES: Appetite; No: Chills, Night Sweats, Fatigue, Malaise, Other PSYCHOLOGICAL ROS: YES: Hostility, Irritablity, Sleep disturbances, Suicidal ideation; No: Anxiety, Behavioral Disorder, Concentration difficultie, Decreased libido, Depression, Disorientation, Hallucinations, Mood Swings, Obsessive thoughts, Other Eyes: No Blurry vision, No Decreased vision, No Double vision, No Dry eyes, No Excessive tearing, No Eye Pain, No Itchy Eyes, No Loss of vision, No Photophobia, No Scotomata, No Uses contacts, No Uses glasses, No Other Respiratory: No: Cough, Hemoptysis, Orthopnea, Pleuritic Pain, Shortness of breath, SOB with excertion, Sputum Changes, Stridor, Tachypnea, Wheezing, Other Cardiovascular: No Chest Pain, No Palpitations, No Orthopnea, No Paroxysmal Noc. Dyspnea, No Edema, No Lt Headedness, No Other Gastrointestinal: No Nausea, No Vomiting, No Abdominal Pain, No Diarrhea, No Constipation, No Melena, No Hematochezia, No Other Genitourinary: No Dysuria, No Frequency, No Incontinence, No Hematuria, No Retention, No Discharge, No Urgency, No Pain, No Flank Pain, No Other, No , No , No , No , No , No , No Musculoskeletal: No Gait Disturbance, No Joint Pain, No Joint Stiffness, No Joint Swelling, No Muscle Pain, No Muscular Weakness, No Pain In:, No Swelling In:, No Other Neurological: No Behavorial Changes, No Bowel/Bladder ControlChng, No Confusion, No Dizziness, No Gait Disturbance, No Headaches, No Impaired Coord/balance, No Memory Loss, No Numbness/Tingling, No Seizures, No Speech Problems, No Tremors, No Visual Changes, No Weakness, No Other Skin: No Dry Skin, No Eczema, No Hair Changes, No Lumps, No Mole Changes, No Mottling, No Nail Changes, No Pruritus, No Rash, No Skin Lesion Changes, No Other, No Acne Physical Exam General: Alert, Oriented X3, mild distress, Other (not cooperative) HEENT: Atraumatic, PERRLA Lungs: Clear to auscultation Heart: S1S2, no murmurs Extremities: No clubbing, Normal pulses, Other (left BKA) Skin: No breakdown, No significant lesion Neuro: Normal tone, Sensation intact Vitals Vitals Vital Signs Date Time Temp Pulse Resp B/P (MAP) Pulse Ox O2 Delivery O2 Flow Rate FiO2 03/30/19 12:05 Nasal Cannula 3.0 03/30/19 11:00 94 03/30/19 11:00 97.7 97 16 134/84 (101) 97.7 Labs Labs Laboratory Tests Test 03/29/19 21:45 03/29/19 21:47 White Blood Count 10.3 x10^3/uL (4.0-11.0) Red Blood Count 5.15 x10^6/uL (3.50-5.40) Hemoglobin 15.5 g/dL (12.0-15.5) Hematocrit 46.0 % (36.0-47.0) Mean Corpuscular Volume 90 fL (79-100) Mean Corpuscular Hemoglobin 30 pg (25-35) Mean Corpuscular Hemoglobin Concent 34 g/dL (31-37) Red Cell Distribution Width 14.2 % (11.5-14.5) Platelet Count 201 x10^3/uL (140-400) Neutrophils (%) (Auto) 67 % (31-73) Lymphocytes (%) (Auto) 24 % (24-48) Monocytes (%) (Auto) 6 % (0-9) Eosinophils (%) (Auto) 2 % (0-3) Basophils (%) (Auto) 1 % (0-3) Neutrophils # (Auto) 6.8 x10^3/uL (1.8-7.7) Lymphocytes # (Auto) 2.5 x10^3/uL (1.0-4.8) Monocytes # (Auto) 0.7 x10^3/uL (0.0-1.1) Eosinophils # (Auto) 0.2 x10^3/uL (0.0-0.7) Basophils # (Auto) 0.1 x10^3/uL (0.0-0.2) Sodium Level 138 mmol/L (136-145) Potassium Level 3.2 mmol/L (3.5-5.1) Chloride Level 101 mmol/L (98-107) Carbon Dioxide Level 29 mmol/L (21-32) Anion Gap 8 (6-14) Blood Urea Nitrogen 11 mg/dL (7-20) Creatinine 0.6 mg/dL (0.6-1.0) Estimated GFR (Cockcroft-Gault) 125.6 BUN/Creatinine Ratio 18 (6-20) Glucose Level 104 mg/dL (70-99) Calcium Level 9.4 mg/dL (8.5-10.1) Total Bilirubin 0.5 mg/dL (0.2-1.0) Aspartate Amino Transf (AST/SGOT) 16 U/L (15-37) Alanine Aminotransferase (ALT/SGPT) 15 U/L (14-59) Alkaline Phosphatase 101 U/L (46-116) Total Protein 8.0 g/dL (6.4-8.2) Albumin 3.4 g/dL (3.4-5.0) Albumin/Globulin Ratio 0.7 (1.0-1.7) Ethyl Alcohol Level < 10 mg/dL (0-10) Urine Opiates Screen Neg (NEG) Urine Methadone Screen Neg (NEG) Urine Barbiturates Neg (NEG) Urine Phencyclidine Screen Neg (NEG) Urine Amphetamine/Methamphetamine Pos (NEG) Urine Benzodiazepines Screen Neg (NEG) Urine Cocaine Screen Pos (NEG) Urine Cannabinoids Screen Pos (NEG) Urine Ethyl Alcohol Neg (NEG) Laboratory Tests Test 03/29/19 21:45 03/29/19 21:47 White Blood Count 10.3 x10^3/uL (4.0-11.0) Red Blood Count 5.15 x10^6/uL (3.50-5.40) Hemoglobin 15.5 g/dL (12.0-15.5) Hematocrit 46.0 % (36.0-47.0) Mean Corpuscular Volume 90 fL (79-100) Mean Corpuscular Hemoglobin 30 pg (25-35) Mean Corpuscular Hemoglobin Concent 34 g/dL (31-37) Red Cell Distribution Width 14.2 % (11.5-14.5) Platelet Count 201 x10^3/uL (140-400) Neutrophils (%) (Auto) 67 % (31-73) Lymphocytes (%) (Auto) 24 % (24-48) Monocytes (%) (Auto) 6 % (0-9) Eosinophils (%) (Auto) 2 % (0-3) Basophils (%) (Auto) 1 % (0-3) Neutrophils # (Auto) 6.8 x10^3/uL (1.8-7.7) Lymphocytes # (Auto) 2.5 x10^3/uL (1.0-4.8) Monocytes # (Auto) 0.7 x10^3/uL (0.0-1.1) Eosinophils # (Auto) 0.2 x10^3/uL (0.0-0.7) Basophils # (Auto) 0.1 x10^3/uL (0.0-0.2) Sodium Level 138 mmol/L (136-145) Potassium Level 3.2 mmol/L (3.5-5.1) Chloride Level 101 mmol/L (98-107) Carbon Dioxide Level 29 mmol/L (21-32) Anion Gap 8 (6-14) Blood Urea Nitrogen 11 mg/dL (7-20) Creatinine 0.6 mg/dL (0.6-1.0) Estimated GFR (Cockcroft-Gault) 125.6 BUN/Creatinine Ratio 18 (6-20) Glucose Level 104 mg/dL (70-99) Calcium Level 9.4 mg/dL (8.5-10.1) Total Bilirubin 0.5 mg/dL (0.2-1.0) Aspartate Amino Transf (AST/SGOT) 16 U/L (15-37) Alanine Aminotransferase (ALT/SGPT) 15 U/L (14-59) Alkaline Phosphatase 101 U/L (46-116) Total Protein 8.0 g/dL (6.4-8.2) Albumin 3.4 g/dL (3.4-5.0) Albumin/Globulin Ratio 0.7 (1.0-1.7) Ethyl Alcohol Level < 10 mg/dL (0-10) Urine Opiates Screen Neg (NEG) Urine Methadone Screen Neg (NEG) Urine Barbiturates Neg (NEG) Urine Phencyclidine Screen Neg (NEG) Urine Amphetamine/Methamphetamine Pos (NEG) Urine Benzodiazepines Screen Neg (NEG) Urine Cocaine Screen Pos (NEG) Urine Cannabinoids Screen Pos (NEG) Urine Ethyl Alcohol Neg (NEG) VTE Prophylaxis Ordered VTE Prophylaxis Devices: Yes VTE Pharmacological Prophylaxi: Yes Assessment/Plan Assessment/Plan suicidal intent major depression polysubstance abuse Hx traumatic brain injury behavioral disorder admit to ICU pt agitated, psychotic, required Haldol for sedation COPD s/p Left leg amputee Seizures chronic on Keppra Generalized weakness, fall risk MSK pains P ZINA FOSTER MD Mar 30, 2019 14:25
--- NOTE | 2019-03-30 14:32 | NUR ---
NOTE: AM meds not given at due time ,too lethargic. Haldol after outburst has dulled awareness/ high risk swallow again. Ready to transfer to [facility]. Will transfer per bed after report taken. Unable to eat lunch at this timed too.
[2019-03-30 15:00] VITALS: BP 119/79
--- NOTE | 2019-03-30 15:20 | NUR ---
Transfer report phoned. Patient remains somnolent after haldol dose. Personal belongings w urine smell doubled bag and w patient. Personal w/c to [phone] as well w transfer of patient. Transported per bed after report. Sit[place] w patient also. Continue POC; PAT team eval am,SI precautions. NOTE patient . Swab for chlamydia to lab as ordered by ER this am.03/30
--- NOTE | 2019-03-30 16:25 | NUR ---
Report received from Julieta in ICU at approx 1505. Pt brought to unit at approx 1600 by bed with 1:1. Pt is sleeping at this time, SI precautions in place. Will continue to monitor.
[2019-03-30 19:00] VITALS: BP 116/75
[2019-03-30 22:31] VITALS: BP 127/85
[2019-03-31 02:30] VITALS: BP 127/79
[2019-03-31] MEDS: IPRATRPIUM/ALBUTEROL 0.5/2.5MG 3 ML NEBU. NEB SCH (06:00)
[2019-03-31 06:29] LABS: BASO % 0 % (0-3); EOS # 0.1 x10^3/uL (0.0-0.7); EOS % 1 % (0-3); HEMATOCRIT 43.3 % (36.0-47.0); HEMOGLOBIN 13.6 g/dL (12.0-15.5); LYMPH # 2.6 x10^3/uL (1.0-4.8); LYMPH % 21 % (24-48); MEAN CORPUSCULAR HEMOGLOBIN 29 pg (25-35); MEAN CORPUSCULAR HGB CONC 32 g/dL (31-37); MEAN CORPUSCULAR VOLUME 92 fL (79-100); MONO # 0.9 x10^3/uL (0.0-1.1); MONO % 7 % (0-9); NEUT # 8.9 x10^3/uL (1.8-7.7); NEUT % 71 % (31-73); PLATELET COUNT 179 x10^3/uL (140-400); RED BLOOD COUNT 4.72 x10^6/uL (3.50-5.40); RED CELL DISTRIBUTION WIDTH 14.7 % (11.5-14.5); WHITE BLOOD COUNT 12.5 x10^3/uL (4.0-11.0)
[2019-03-31 06:58] LABS: ALBUMIN 2.5 g/dL (3.4-5.0); ALBUMIN/GLOBULIN RATIO 0.6 (1.0-1.7); CALCIUM 9.1 mg/dL (8.5-10.1); CREATININE 0.5 mg/dL (0.6-1.0); POTASSIUM 4.3 mmol/L (3.5-5.1); TOTAL BILIRUBIN 0.3 mg/dL (0.2-1.0); TOTAL PROTEIN 6.4 g/dL (6.4-8.2)
[2019-03-31 07:45] VITALS: BP 147/96
--- NOTE | 2019-03-31 08:24 | PDOC ---
PROGRESS NOTES History of Present Illness History of Present Illness VTE Prophylaxis Ordered VTE Prophylaxis Devices: Yes VTE Pharmacological Prophylaxi: Yes Assessment/Plan Assessment/Plan suicidal intent major depression polysubstance abuse THC, COCAINE Hx traumatic brain injury behavioral disorder admitED to ICU pt agitated, psychotic, required Haldol for sedation COPD s/p Left leg amputee Seizures chronic on Keppra Generalized weakness, fall risk MSK pains 38 MIN PT EXAM, CHART REVIEW, > 50% OF TIME SPENT WITH EXAM, CHART REVIEW, PT CARE COORDINATION Vitals Vitals Vital Signs Date Time Temp Pulse Resp B/P (MAP) Pulse Ox O2 Delivery O2 Flow Rate FiO2 03/31/19 07:45 97.8 105 16 147/96 (113) Nasal Cannula 3.0 97.8 03/31/19 02:30 95 Physical Exam General: Alert, Oriented X3, mild distress, Other (not cooperative) Lungs: Clear Abdomen: Normal bowel sounds, Soft Extremities: No clubbing, Normal pulses, Other (left BKA) Skin: No breakdown, No significant lesion Labs LABS Laboratory Tests Test 03/31/19 04:50 White Blood Count 12.5 x10^3/uL (4.0-11.0) Red Blood Count 4.72 x10^6/uL (3.50-5.40) Hemoglobin 13.6 g/dL (12.0-15.5) Hematocrit 43.3 % (36.0-47.0) Mean Corpuscular Volume 92 fL (79-100) Mean Corpuscular Hemoglobin 29 pg (25-35) Mean Corpuscular Hemoglobin Concent 32 g/dL (31-37) Red Cell Distribution Width 14.7 % (11.5-14.5) Platelet Count 179 x10^3/uL (140-400) Neutrophils (%) (Auto) 71 % (31-73) Lymphocytes (%) (Auto) 21 % (24-48) Monocytes (%) (Auto) 7 % (0-9) Eosinophils (%) (Auto) 1 % (0-3) Basophils (%) (Auto) 0 % (0-3) Neutrophils # (Auto) 8.9 x10^3/uL (1.8-7.7) Lymphocytes # (Auto) 2.6 x10^3/uL (1.0-4.8) Monocytes # (Auto) 0.9 x10^3/uL (0.0-1.1) Eosinophils # (Auto) 0.1 x10^3/uL (0.0-0.7) Basophils # (Auto) 0.0 x10^3/uL (0.0-0.2) Sodium Level 143 mmol/L (136-145) Potassium Level 4.3 mmol/L (3.5-5.1) Chloride Level 109 mmol/L (98-107) Carbon Dioxide Level 26 mmol/L (21-32) Anion Gap 8 (6-14) Blood Urea Nitrogen 15 mg/dL (7-20) Creatinine 0.5 mg/dL (0.6-1.0) Estimated GFR (Cockcroft-Gault) 155.0 BUN/Creatinine Ratio 30 (6-20) Glucose Level 88 mg/dL (70-99) Calcium Level 9.1 mg/dL (8.5-10.1) Total Bilirubin 0.3 mg/dL (0.2-1.0) Aspartate Amino Transf (AST/SGOT) 11 U/L (15-37) Alanine Aminotransferase (ALT/SGPT) 9 U/L (14-59) Alkaline Phosphatase 77 U/L (46-116) Total Protein 6.4 g/dL (6.4-8.2) Albumin 2.5 g/dL (3.4-5.0) Albumin/Globulin Ratio 0.6 (1.0-1.7) Assessment and Plan Assessmemt and Plan Problems Medical Problems: (1) Bronchitis, acute, with bronchospasm Status: Acute (2) Suicidal ideation Status: Acute Comment Review of Relevant I have reviewed the following items edward (where applicable) has been applied. Labs Laboratory Tests Test 03/29/19 21:45 03/29/19 21:47 03/30/19 04:30 03/31/19 04:50 White Blood Count 10.3 x10^3/uL (4.0-11.0) 12.5 x10^3/uL (4.0-11.0) Red Blood Count 5.15 x10^6/uL (3.50-5.40) 4.72 x10^6/uL (3.50-5.40) Hemoglobin 15.5 g/dL (12.0-15.5) 13.6 g/dL (12.0-15.5) Hematocrit 46.0 % (36.0-47.0) 43.3 % (36.0-47.0) Mean Corpuscular Volume 90 fL (79-100) 92 fL (79-100) Mean Corpuscular Hemoglobin 30 pg (25-35) 29 pg (25-35) Mean Corpuscular Hemoglobin Concent 34 g/dL (31-37) 32 g/dL (31-37) Red Cell Distribution Width 14.2 % (11.5-14.5) 14.7 % (11.5-14.5) Platelet Count 201 x10^3/uL (140-400) 179 x10^3/uL (140-400) Neutrophils (%) (Auto) 67 % (31-73) 71 % (31-73) Lymphocytes (%) (Auto) 24 % (24-48) 21 % (24-48) Monocytes (%) (Auto) 6 % (0-9) 7 % (0-9) Eosinophils (%) (Auto) 2 % (0-3) 1 % (0-3) Basophils (%) (Auto) 1 % (0-3) 0 % (0-3) Neutrophils # (Auto) 6.8 x10^3/uL (1.8-7.7) 8.9 x10^3/uL (1.8-7.7) Lymphocytes # (Auto) 2.5 x10^3/uL (1.0-4.8) 2.6 x10^3/uL (1.0-4.8) Monocytes # (Auto) 0.7 x10^3/uL (0.0-1.1) 0.9 x10^3/uL (0.0-1.1) Eosinophils # (Auto) 0.2 x10^3/uL (0.0-0.7) 0.1 x10^3/uL (0.0-0.7) Basophils # (Auto) 0.1 x10^3/uL (0.0-0.2) 0.0 x10^3/uL (0.0-0.2) Sodium Level 138 mmol/L (136-145) 143 mmol/L (136-145) Potassium Level 3.2 mmol/L (3.5-5.1) 4.3 mmol/L (3.5-5.1) Chloride Level 101 mmol/L (98-107) 109 mmol/L (98-107) Carbon Dioxide Level 29 mmol/L (21-32) 26 mmol/L (21-32) Anion Gap 8 (6-14) 8 (6-14) Blood Urea Nitrogen 11 mg/dL (7-20) 15 mg/dL (7-20) Creatinine 0.6 mg/dL (0.6-1.0) 0.5 mg/dL (0.6-1.0) Estimated GFR (Cockcroft-Gault) 125.6 155.0 BUN/Creatinine Ratio 18 (6-20) 30 (6-20) Glucose Level 104 mg/dL (70-99) 88 mg/dL (70-99) Calcium Level 9.4 mg/dL (8.5-10.1) 9.1 mg/dL (8.5-10.1) Total Bilirubin 0.5 mg/dL (0.2-1.0) 0.3 mg/dL (0.2-1.0) Aspartate Amino Transf (AST/SGOT) 16 U/L (15-37) 11 U/L (15-37) Alanine Aminotransferase (ALT/SGPT) 15 U/L (14-59) 9 U/L (14-59) Alkaline Phosphatase 101 U/L (46-116) 77 U/L (46-116) Total Protein 8.0 g/dL (6.4-8.2) 6.4 g/dL (6.4-8.2) Albumin 3.4 g/dL (3.4-5.0) 2.5 g/dL (3.4-5.0) Albumin/Globulin Ratio 0.7 (1.0-1.7) 0.6 (1.0-1.7) Ethyl Alcohol Level < 10 mg/dL (0-10) Urine Opiates Screen Neg (NEG) Urine Methadone Screen Neg (NEG) Urine Barbiturates Neg (NEG) Urine Phencyclidine Screen Neg (NEG) Urine Amphetamine/Methamphetamine Pos (NEG) Urine Benzodiazepines Screen Neg (NEG) Urine Cocaine Screen Pos (NEG) Urine Cannabinoids Screen Pos (NEG) Urine Ethyl Alcohol Neg (NEG) Nasal Screen MRSA (PCR) Positive (Negative) Laboratory Tests Test 03/31/19 04:50 White Blood Count 12.5 x10^3/uL (4.0-11.0) Red Blood Count 4.72 x10^6/uL (3.50-5.40) Hemoglobin 13.6 g/dL (12.0-15.5) Hematocrit 43.3 % (36.0-47.0) Mean Corpuscular Volume 92 fL (79-100) Mean Corpuscular Hemoglobin 29 pg (25-35) Mean Corpuscular Hemoglobin Concent 32 g/dL (31-37) Red Cell Distribution Width 14.7 % (11.5-14.5) Platelet Count 179 x10^3/uL (140-400) Neutrophils (%) (Auto) 71 % (31-73) Lymphocytes (%) (Auto) 21 % (24-48) Monocytes (%) (Auto) 7 % (0-9) Eosinophils (%) (Auto) 1 % (0-3) Basophils (%) (Auto) 0 % (0-3) Neutrophils # (Auto) 8.9 x10^3/uL (1.8-7.7) Lymphocytes # (Auto) 2.6 x10^3/uL (1.0-4.8) Monocytes # (Auto) 0.9 x10^3/uL (0.0-1.1) Eosinophils # (Auto) 0.1 x10^3/uL (0.0-0.7) Basophils # (Auto) 0.0 x10^3/uL (0.0-0.2) Sodium Level 143 mmol/L (136-145) Potassium Level 4.3 mmol/L (3.5-5.1) Chloride Level 109 mmol/L (98-107) Carbon Dioxide Level 26 mmol/L (21-32) Anion Gap 8 (6-14) Blood Urea Nitrogen 15 mg/dL (7-20) Creatinine 0.5 mg/dL (0.6-1.0) Estimated GFR (Cockcroft-Gault) 155.0 BUN/Creatinine Ratio 30 (6-20) Glucose Level 88 mg/dL (70-99) Calcium Level 9.1 mg/dL (8.5-10.1) Total Bilirubin 0.3 mg/dL (0.2-1.0) Aspartate Amino Transf (AST/SGOT) 11 U/L (15-37) Alanine Aminotransferase (ALT/SGPT) 9 U/L (14-59) Alkaline Phosphatase 77 U/L (46-116) Total Protein 6.4 g/dL (6.4-8.2) Albumin 2.5 g/dL (3.4-5.0) Albumin/Globulin Ratio 0.6 (1.0-1.7) Medications Current Medications Ondansetron HCl (Zofran) 4 mg PRN Q8HRS PRN IV NAUSEA/VOMITING; Start 03/29/19 at 22:30; Stop 03/30/19 at 22:29; Status Cancel Lacosamide 100 mg/ Dextrose 60 ml @ 120 mls/hr 1X ONCE IV ; Start 03/29/19 at 22:45; Stop 03/29/19 at 23:14; Status Cancel Lorazepam (Ativan Inj) 2 mg 1X PRN IV seizure; Start 03/29/19 at 22:30; Status Cancel Albuterol/ Ipratropium (Duoneb) 3 ml 1X ONCE NEB ; Start 03/30/19 at 03:30; Stop 03/30/19 at 03:31; Status DC Prednisone (Prednisone) 60 mg 1X ONCE PO Last administered on 03/30/19at 05:29; Start 03/30/19 at 03:30; Stop 03/30/19 at 03:31; Status DC Ondansetron HCl (Zofran) 4 mg PRN Q8HRS PRN IV NAUSEA/VOMITING; Start 03/30/19 at 03:30; Stop 03/31/19 at 03:29; Status DC Sodium Chloride 1,000 ml @ 125 mls/hr Q8H IV Last administered on 03/30/19at 21:01; Start 03/30/19 at 03:30; Stop 03/31/19 at 03:29; Status DC Albuterol/ Ipratropium (Duoneb) 3 ml RTQID NEB Last administered on 03/30/19at 08:34; Start 03/30/19 at 08:00; Stop 03/30/19 at 08:55; Status DC Ceftriaxone Sodium (Rocephin) 1 gm 1X ONCE IVP Last administered on 03/30/19at 05:29; Start 03/30/19 at 05:30; Stop 03/30/19 at 05:31; Status DC Albuterol/ Ipratropium (Duoneb) 3 ml Q4HRS W/A NEB Last administered on 03/30/19at 18:16; Start 03/30/19 at 09:00; Stop 03/31/19 at 08:59 Potassium Chloride (Klor-Con) 40 meq 1X ONCE PO ; Start 03/30/19 at 09:00; Stop 03/30/19 at 09:02; Status DC Prednisone (Prednisone) 40 mg DAILY PO ; Start 03/30/19 at 09:00 Haloperidol Lactate (Haldol Inj) 5 mg 1X ONCE IM Last administered on 03/30/19at 14:45; Start 03/30/19 at 10:00; Stop 03/30/19 at 10:01; Status DC Active Scripts Active Prednisone 20 Mg Tablet 2 Tab PO DAILY Start this prescription tomorrow, Monday03/29/19 Proair Hfa Inhaler (Albuterol Sulfate) 8.5 Gm Hfa.aer.ad 1 Puff INH PRN Q6HRS PRN [place] 5-325 Tablet (Acetaminophen/Hydrocodone Bitart) 1 Each Tablet 1 Tab PO PRN Q6HRS PRN No drinking alcohol while taking this medication Keppra (Levetiracetam) 500 Mg Tablet 1 Tab PO BID 7 Days Reported No Known Medications Prior To Admisstion (Info) Each 1 Each Vitals/I & O Vital Sign - Last 24 Hours 03/30/19 03/30/19 03/30/19 03/30/19 08:38 11:00 11:00 12:05 Temp 97.7 97.7 Pulse 97 Resp 16 B/P (MAP) 134/84 (101) Pulse Ox 93 94 94 O2 Delivery Nasal Cannula Nasal Cannula Nasal Cannula O2 Flow Rate 3.0 3.0 3.0 03/30/19 03/30/19 03/30/19 03/30/19 15:00 15:38 18:16 19:00 Temp 98.8 97.3 98.8 97.3 Pulse 100 90 Resp 20 18 B/P (MAP) 119/79 (92) 116/75 (89) Pulse Ox 92 96 O2 Delivery Nasal Cannula Nasal Cannula Nasal Cannula Nasal Cannula O2 Flow Rate 3.0 3.0 3.0 03/30/19 03/30/19 03/31/19 03/31/19 20:05 22:31 02:30 07:45 Temp 97.5 97.1 97.8 97.5 97.1 97.8 Pulse 76 72 105 Resp 20 20 16 B/P (MAP) 127/85 (99) 127/79 (95) 147/96 (113) Pulse Ox 95 95 O2 Delivery Nasal Cannula Nasal Cannula Nasal Cannula Nasal Cannula O2 Flow Rate 3.0 3.0 3.0 3.0 Intake and Output 03/30/19 03/30/19 03/31/19 15:00 23:00 07:00 Intake Total 200 ml 2050 ml Output Total 140 ml 300 ml Balance 60 ml 1750 ml OH ORTIZ MD Mar 31, 2019 08:24
--- NOTE | 2019-03-31 08:34 | NUR ---
When asked if pt was having thoughts of harming herself or others her response was, "I'm really not sure right now". Will continue to monitor pt.
[2019-03-31] MEDS: predniSONE 20 MG TABLET PO SCH (09:52)
[2019-03-31 11:00] VITALS: BP 123/74
[2019-03-31] MEDS: ACETAMINOPHEN 325 MG TABLET. PO PRN ×2 (13:07→19:16)
--- NOTE | 2019-03-31 13:15 | NUR ---
D/C planning update for SW: When pt d/c, please set up for [facility] to provide services to pt for TBI. TAD suggested pt go back to [facility] [place] upon d/c.
[2019-03-31 14:47] VITALS: BP 139/80
--- NOTE | 2019-03-31 15:17 | PDOC ---
PULMONARY PROGRESS NOTES Subjective 53 y.o. female admitted to hospital for suicidal ideation. She was noted to be wheezing. She was treated with prednisone and inhaled bronchodilators, Today she is more communicative. She notes her breathing is better. She also notes that she is still smoking, but wants to quit. Vitals Vital Signs Date Time Temp Pulse Resp B/P (MAP) Pulse Ox O2 Delivery O2 Flow Rate FiO2 03/31/19 14:47 98.1 89 18 139/80 (99) 99 Nasal Cannula 3.0 98.1 ROS: No Nausea, No Chest Pain General: Alert Lungs: Clear Cardiovascular: S1, S2 Labs Laboratory Tests Test 03/29/19 21:45 03/29/19 21:47 03/30/19 04:30 03/31/19 04:50 White Blood Count 10.3 x10^3/uL (4.0-11.0) 12.5 x10^3/uL (4.0-11.0) Red Blood Count 5.15 x10^6/uL (3.50-5.40) 4.72 x10^6/uL (3.50-5.40) Hemoglobin 15.5 g/dL (12.0-15.5) 13.6 g/dL (12.0-15.5) Hematocrit 46.0 % (36.0-47.0) 43.3 % (36.0-47.0) Mean Corpuscular Volume 90 fL (79-100) 92 fL (79-100) Mean Corpuscular Hemoglobin 30 pg (25-35) 29 pg (25-35) Mean Corpuscular Hemoglobin Concent 34 g/dL (31-37) 32 g/dL (31-37) Red Cell Distribution Width 14.2 % (11.5-14.5) 14.7 % (11.5-14.5) Platelet Count 201 x10^3/uL (140-400) 179 x10^3/uL (140-400) Neutrophils (%) (Auto) 67 % (31-73) 71 % (31-73) Lymphocytes (%) (Auto) 24 % (24-48) 21 % (24-48) Monocytes (%) (Auto) 6 % (0-9) 7 % (0-9) Eosinophils (%) (Auto) 2 % (0-3) 1 % (0-3) Basophils (%) (Auto) 1 % (0-3) 0 % (0-3) Neutrophils # (Auto) 6.8 x10^3/uL (1.8-7.7) 8.9 x10^3/uL (1.8-7.7) Lymphocytes # (Auto) 2.5 x10^3/uL (1.0-4.8) 2.6 x10^3/uL (1.0-4.8) Monocytes # (Auto) 0.7 x10^3/uL (0.0-1.1) 0.9 x10^3/uL (0.0-1.1) Eosinophils # (Auto) 0.2 x10^3/uL (0.0-0.7) 0.1 x10^3/uL (0.0-0.7) Basophils # (Auto) 0.1 x10^3/uL (0.0-0.2) 0.0 x10^3/uL (0.0-0.2) Sodium Level 138 mmol/L (136-145) 143 mmol/L (136-145) Potassium Level 3.2 mmol/L (3.5-5.1) 4.3 mmol/L (3.5-5.1) Chloride Level 101 mmol/L (98-107) 109 mmol/L (98-107) Carbon Dioxide Level 29 mmol/L (21-32) 26 mmol/L (21-32) Anion Gap 8 (6-14) 8 (6-14) Blood Urea Nitrogen 11 mg/dL (7-20) 15 mg/dL (7-20) Creatinine 0.6 mg/dL (0.6-1.0) 0.5 mg/dL (0.6-1.0) Estimated GFR (Cockcroft-Gault) 125.6 155.0 BUN/Creatinine Ratio 18 (6-20) 30 (6-20) Glucose Level 104 mg/dL (70-99) 88 mg/dL (70-99) Calcium Level 9.4 mg/dL (8.5-10.1) 9.1 mg/dL (8.5-10.1) Total Bilirubin 0.5 mg/dL (0.2-1.0) 0.3 mg/dL (0.2-1.0) Aspartate Amino Transf (AST/SGOT) 16 U/L (15-37) 11 U/L (15-37) Alanine Aminotransferase (ALT/SGPT) 15 U/L (14-59) 9 U/L (14-59) Alkaline Phosphatase 101 U/L (46-116) 77 U/L (46-116) Total Protein 8.0 g/dL (6.4-8.2) 6.4 g/dL (6.4-8.2) Albumin 3.4 g/dL (3.4-5.0) 2.5 g/dL (3.4-5.0) Albumin/Globulin Ratio 0.7 (1.0-1.7) 0.6 (1.0-1.7) Ethyl Alcohol Level < 10 mg/dL (0-10) Urine Opiates Screen Neg (NEG) Urine Methadone Screen Neg (NEG) Urine Barbiturates Neg (NEG) Urine Phencyclidine Screen Neg (NEG) Urine Amphetamine/Methamphetamine Pos (NEG) Urine Benzodiazepines Screen Neg (NEG) Urine Cocaine Screen Pos (NEG) Urine Cannabinoids Screen Pos (NEG) Urine Ethyl Alcohol Neg (NEG) Nasal Screen MRSA (PCR) Positive (Negative) Laboratory Tests Test 03/31/19 04:50 White Blood Count 12.5 x10^3/uL (4.0-11.0) Red Blood Count 4.72 x10^6/uL (3.50-5.40) Hemoglobin 13.6 g/dL (12.0-15.5) Hematocrit 43.3 % (36.0-47.0) Mean Corpuscular Volume 92 fL (79-100) Mean Corpuscular Hemoglobin 29 pg (25-35) Mean Corpuscular Hemoglobin Concent 32 g/dL (31-37) Red Cell Distribution Width 14.7 % (11.5-14.5) Platelet Count 179 x10^3/uL (140-400) Neutrophils (%) (Auto) 71 % (31-73) Lymphocytes (%) (Auto) 21 % (24-48) Monocytes (%) (Auto) 7 % (0-9) Eosinophils (%) (Auto) 1 % (0-3) Basophils (%) (Auto) 0 % (0-3) Neutrophils # (Auto) 8.9 x10^3/uL (1.8-7.7) Lymphocytes # (Auto) 2.6 x10^3/uL (1.0-4.8) Monocytes # (Auto) 0.9 x10^3/uL (0.0-1.1) Eosinophils # (Auto) 0.1 x10^3/uL (0.0-0.7) Basophils # (Auto) 0.0 x10^3/uL (0.0-0.2) Sodium Level 143 mmol/L (136-145) Potassium Level 4.3 mmol/L (3.5-5.1) Chloride Level 109 mmol/L (98-107) Carbon Dioxide Level 26 mmol/L (21-32) Anion Gap 8 (6-14) Blood Urea Nitrogen 15 mg/dL (7-20) Creatinine 0.5 mg/dL (0.6-1.0) Estimated GFR (Cockcroft-Gault) 155.0 BUN/Creatinine Ratio 30 (6-20) Glucose Level 88 mg/dL (70-99) Calcium Level 9.1 mg/dL (8.5-10.1) Total Bilirubin 0.3 mg/dL (0.2-1.0) Aspartate Amino Transf (AST/SGOT) 11 U/L (15-37) Alanine Aminotransferase (ALT/SGPT) 9 U/L (14-59) Alkaline Phosphatase 77 U/L (46-116) Total Protein 6.4 g/dL (6.4-8.2) Albumin 2.5 g/dL (3.4-5.0) Albumin/Globulin Ratio 0.6 (1.0-1.7) Medications Active Scripts Medications Dose Route/Sig Max Daily Dose Days Date Category Dose Instructions Prednisone 20 Mg Tablet 2 Tab PO DAILY 03/28/19 Rx Start this prescription tomorrow, Monday03/29/19 Proair Hfa Inhaler (Albuterol Sulfate) 8.5 Gm Hfa.aer.ad 1 Puff INH PRN Q6HRS PRN 03/28/19 Rx [place] 5-325 Tablet (Acetaminophen/Hydrocodone Bitart) 1 Each Tablet 1 Tab PO PRN Q6HRS PRN 02/10/19 Rx No drinking alcohol while taking this medication Keppra (Levetiracetam) 500 Mg Tablet 1 Tab PO BID 7 09/21/18 Rx No Known Medications Prior To Admisstion (Info) Each 1 Each 03/15/15 Reported Impression . 1. COPD exacerbation, responding well to therapy 2. Tobacco abuse Plan . Continue inhaled bronchodilators Continue prednisone for total of 5 days, then stop Discussed importance of smoking cessation Will taper/dc supplemental O2 as tolerated. NKECHI WILLIS MD Mar 31, 2019 15:17
[2019-03-31 19:00] VITALS: BP 140/91
[2019-03-31 23:00] VITALS: BP 135/89
[2019-04-01 03:00] VITALS: BP 134/89
[2019-04-01 07:00] VITALS: BP 143/91
[2019-04-01] MEDS: predniSONE 20 MG TABLET PO SCH (08:59)
--- NOTE | 2019-04-01 09:21 | NUR ---
IP: Pt is mrsa screen + requiring contact precautions. Nozin/CHG decolonization has been initiated.
--- NOTE | 2019-04-01 10:05 | PDOC ---
PROGRESS NOTES History of Present Illness History of Present Illness VTE Prophylaxis Ordered VTE Prophylaxis Devices: Yes VTE Pharmacological Prophylaxi: Yes Assessment/Plan Assessment/Plan suicidal intent needs psych eval major depression polysubstance abuse THC, COCAINE Hx traumatic brain injury behavioral disorder admitED to ICU pt was agitated, psychotic, required Haldol for sedation COPD s/p Left leg amputee Generalized weakness, fall risk MSK pains Left leg amputee Seizures chronic on Keppra Generalized weakness, fall risk sitter tsh smoking education provided 37 MIN PT EXAM, CHART REVIEW, > 50% OF TIME SPENT WITH EXAM, CHART REVIEW, PT CARE COORDINATION Vitals Vitals Vital Signs Date Time Temp Pulse Resp B/P (MAP) Pulse Ox O2 Delivery O2 Flow Rate FiO2 04/01/19 08:00 Room Air 04/01/19 07:00 97.9 84 18 143/91 (108) 93 97.9 03/31/19 14:47 3.0 Physical Exam Physical Exam sad affect General: Alert, Oriented X3, Cooperative, No acute distress, mild distress, Other (not cooperative) Heart: Regular rate, Normal S1, Normal S2, No murmurs Lungs: Clear Abdomen: Normal bowel sounds, Soft Extremities: No clubbing, No cyanosis, Normal pulses, Other (left BKA) Skin: No breakdown, No significant lesion Assessment and Plan Assessmemt and Plan Problems Medical Problems: (1) Behavior disorder Status: Chronic (2) Bronchitis, acute, with bronchospasm Status: Acute (3) COPD exacerbation Status: Acute (4) Major depression Status: Chronic (5) Seizure disorder Status: Chronic (6) Suicidal ideation Status: Acute Comment Review of Relevant I have reviewed the following items edward (where applicable) has been applied. Labs Laboratory Tests Test 03/31/19 04:50 White Blood Count 12.5 x10^3/uL (4.0-11.0) Red Blood Count 4.72 x10^6/uL (3.50-5.40) Hemoglobin 13.6 g/dL (12.0-15.5) Hematocrit 43.3 % (36.0-47.0) Mean Corpuscular Volume 92 fL (79-100) Mean Corpuscular Hemoglobin 29 pg (25-35) Mean Corpuscular Hemoglobin Concent 32 g/dL (31-37) Red Cell Distribution Width 14.7 % (11.5-14.5) Platelet Count 179 x10^3/uL (140-400) Neutrophils (%) (Auto) 71 % (31-73) Lymphocytes (%) (Auto) 21 % (24-48) Monocytes (%) (Auto) 7 % (0-9) Eosinophils (%) (Auto) 1 % (0-3) Basophils (%) (Auto) 0 % (0-3) Neutrophils # (Auto) 8.9 x10^3/uL (1.8-7.7) Lymphocytes # (Auto) 2.6 x10^3/uL (1.0-4.8) Monocytes # (Auto) 0.9 x10^3/uL (0.0-1.1) Eosinophils # (Auto) 0.1 x10^3/uL (0.0-0.7) Basophils # (Auto) 0.0 x10^3/uL (0.0-0.2) Sodium Level 143 mmol/L (136-145) Potassium Level 4.3 mmol/L (3.5-5.1) Chloride Level 109 mmol/L (98-107) Carbon Dioxide Level 26 mmol/L (21-32) Anion Gap 8 (6-14) Blood Urea Nitrogen 15 mg/dL (7-20) Creatinine 0.5 mg/dL (0.6-1.0) Estimated GFR (Cockcroft-Gault) 155.0 BUN/Creatinine Ratio 30 (6-20) Glucose Level 88 mg/dL (70-99) Calcium Level 9.1 mg/dL (8.5-10.1) Total Bilirubin 0.3 mg/dL (0.2-1.0) Aspartate Amino Transf (AST/SGOT) 11 U/L (15-37) Alanine Aminotransferase (ALT/SGPT) 9 U/L (14-59) Alkaline Phosphatase 77 U/L (46-116) Total Protein 6.4 g/dL (6.4-8.2) Albumin 2.5 g/dL (3.4-5.0) Albumin/Globulin Ratio 0.6 (1.0-1.7) Medications Current Medications Ondansetron HCl (Zofran) 4 mg PRN Q8HRS PRN IV NAUSEA/VOMITING; Start 03/29/19 at 22:30; Stop 03/30/19 at 22:29; Status Cancel Lacosamide 100 mg/ Dextrose 60 ml @ 120 mls/hr 1X ONCE IV ; Start 03/29/19 at 22:45; Stop 03/29/19 at 23:14; Status Cancel Lorazepam (Ativan Inj) 2 mg 1X PRN IV seizure; Start 03/29/19 at 22:30; Status Cancel Albuterol/ Ipratropium (Duoneb) 3 ml 1X ONCE NEB ; Start 03/30/19 at 03:30; Stop 03/30/19 at 03:31; Status DC Prednisone (Prednisone) 60 mg 1X ONCE PO Last administered on 03/30/19at 05:29; Start 03/30/19 at 03:30; Stop 03/30/19 at 03:31; Status DC Ondansetron HCl (Zofran) 4 mg PRN Q8HRS PRN IV NAUSEA/VOMITING; Start 03/30/19 at 03:30; Stop 03/31/19 at 03:29; Status DC Sodium Chloride 1,000 ml @ 125 mls/hr Q8H IV Last administered on 03/30/19at 21:01; Start 03/30/19 at 03:30; Stop 03/31/19 at 03:29; Status DC Albuterol/ Ipratropium (Duoneb) 3 ml RTQID NEB Last administered on 03/30/19at 08:34; Start 03/30/19 at 08:00; Stop 03/30/19 at 08:55; Status DC Ceftriaxone Sodium (Rocephin) 1 gm 1X ONCE IVP Last administered on 03/30/19at 05:29; Start 03/30/19 at 05:30; Stop 03/30/19 at 05:31; Status DC Albuterol/ Ipratropium (Duoneb) 3 ml Q4HRS W/A NEB Last administered on 03/30/19at 18:16; Start 03/30/19 at 09:00; Stop 03/31/19 at 08:59; Status DC Potassium Chloride (Klor-Con) 40 meq 1X ONCE PO ; Start 03/30/19 at 09:00; Stop 03/30/19 at 09:02; Status DC Prednisone (Prednisone) 40 mg DAILY PO Last administered on 04/01/19at 09:00; Start 03/30/19 at 09:00 Haloperidol Lactate (Haldol Inj) 5 mg 1X ONCE IM Last administered on 03/30/19at 14:45; Start 03/30/19 at 10:00; Stop 03/30/19 at 10:01; Status DC Acetaminophen (Tylenol) 650 mg PRN Q6HRS PRN PO PAIN Last administered on 03/31/19at 19:16; Start 03/31/19 at 13:00 Active Scripts Active Prednisone 20 Mg Tablet 2 Tab PO DAILY Start this prescription tomorrow, Monday03/29/19 Proair Hfa Inhaler (Albuterol Sulfate) 8.5 Gm Hfa.aer.ad 1 Puff INH PRN Q6HRS PRN [place] 5-325 Tablet (Acetaminophen/Hydrocodone Bitart) 1 Each Tablet 1 Tab PO PRN Q6HRS PRN No drinking alcohol while taking this medication Keppra (Levetiracetam) 500 Mg Tablet 1 Tab PO BID 7 Days Reported No Known Medications Prior To Admisstion (Info) Each 1 Each Vitals/I & O Vital Sign - Last 24 Hours 03/31/19 03/31/19 03/31/19 03/31/19 11:00 14:47 19:00 19:53 Temp 98.2 98.1 98.3 98.2 98.1 98.3 Pulse 82 89 89 Resp 18 18 20 B/P (MAP) 123/74 (90) 139/80 (99) 140/91 (107) Pulse Ox 92 99 92 O2 Delivery Nasal Cannula Nasal Cannula Room Air Room Air O2 Flow Rate 3.0 3.0 03/31/19 04/01/19 04/01/19 04/01/19 23:00 03:00 07:00 08:00 Temp 97.8 98.7 97.9 97.8 98.7 97.9 Pulse 80 90 84 Resp 20 20 18 B/P (MAP) 135/89 (104) 134/89 (104) 143/91 (108) Pulse Ox 93 90 93 O2 Delivery Room Air Room Air Room Air Room Air Intake and Output 03/31/19 04/01/19 04/01/19 17:00 01:00 09:00 Intake Total 670 ml 450 ml 500 ml Output Total 300 ml 100 ml 300 ml Balance 370 ml 350 ml 200 ml OH ORTIZ MD Apr 01, 2019 10:05
[2019-04-01 11:00] VITALS: BP 137/89
--- NOTE | 2019-04-01 11:45 | PDOC ---
PULMONARY PROGRESS NOTES Subjective 53 y.o. female admitted to hospital for suicidal ideation. She was noted to be wheezing. She was treated with prednisone and inhaled bronchodilators, Today she is more communicative. She notes her breathing is better. She also notes that she is still smoking, but wants to quit. Vitals Vital Signs Date Time Temp Pulse Resp B/P (MAP) Pulse Ox O2 Delivery O2 Flow Rate FiO2 04/01/19 11:00 97.9 89 18 137/89 (105) 93 Room Air 97.9 03/31/19 14:47 3.0 ROS: No Nausea, No Chest Pain General: Alert Lungs: Clear Cardiovascular: S1, S2 Abdomen: Soft Neuro Exam: Alert Extremities: No Edema Skin: Warm Labs Laboratory Tests Test 03/31/19 04:50 White Blood Count 12.5 x10^3/uL (4.0-11.0) Red Blood Count 4.72 x10^6/uL (3.50-5.40) Hemoglobin 13.6 g/dL (12.0-15.5) Hematocrit 43.3 % (36.0-47.0) Mean Corpuscular Volume 92 fL (79-100) Mean Corpuscular Hemoglobin 29 pg (25-35) Mean Corpuscular Hemoglobin Concent 32 g/dL (31-37) Red Cell Distribution Width 14.7 % (11.5-14.5) Platelet Count 179 x10^3/uL (140-400) Neutrophils (%) (Auto) 71 % (31-73) Lymphocytes (%) (Auto) 21 % (24-48) Monocytes (%) (Auto) 7 % (0-9) Eosinophils (%) (Auto) 1 % (0-3) Basophils (%) (Auto) 0 % (0-3) Neutrophils # (Auto) 8.9 x10^3/uL (1.8-7.7) Lymphocytes # (Auto) 2.6 x10^3/uL (1.0-4.8) Monocytes # (Auto) 0.9 x10^3/uL (0.0-1.1) Eosinophils # (Auto) 0.1 x10^3/uL (0.0-0.7) Basophils # (Auto) 0.0 x10^3/uL (0.0-0.2) Sodium Level 143 mmol/L (136-145) Potassium Level 4.3 mmol/L (3.5-5.1) Chloride Level 109 mmol/L (98-107) Carbon Dioxide Level 26 mmol/L (21-32) Anion Gap 8 (6-14) Blood Urea Nitrogen 15 mg/dL (7-20) Creatinine 0.5 mg/dL (0.6-1.0) Estimated GFR (Cockcroft-Gault) 155.0 BUN/Creatinine Ratio 30 (6-20) Glucose Level 88 mg/dL (70-99) Calcium Level 9.1 mg/dL (8.5-10.1) Total Bilirubin 0.3 mg/dL (0.2-1.0) Aspartate Amino Transf (AST/SGOT) 11 U/L (15-37) Alanine Aminotransferase (ALT/SGPT) 9 U/L (14-59) Alkaline Phosphatase 77 U/L (46-116) Total Protein 6.4 g/dL (6.4-8.2) Albumin 2.5 g/dL (3.4-5.0) Albumin/Globulin Ratio 0.6 (1.0-1.7) Medications Active Scripts Medications Dose Route/Sig Max Daily Dose Days Date Category Dose Instructions Prednisone 20 Mg Tablet 2 Tab PO DAILY 03/28/19 Rx Start this prescription tomorrow, Monday03/29/19 Proair Hfa Inhaler (Albuterol Sulfate) 8.5 Gm Hfa.aer.ad 1 Puff INH PRN Q6HRS PRN 03/28/19 Rx [place] 5-325 Tablet (Acetaminophen/Hydrocodone Bitart) 1 Each Tablet 1 Tab PO PRN Q6HRS PRN 02/10/19 Rx No drinking alcohol while taking this medication Keppra (Levetiracetam) 500 Mg Tablet 1 Tab PO BID 7 09/21/18 Rx No Known Medications Prior To Admisstion (Info) Each 1 Each 03/15/15 Reported Impression . 1. COPD exacerbation, responding well to therapy 2. Tobacco abuse Plan . Continue inhaled bronchodilators Continue prednisone for total of 5 days, then stop Discussed importance of smoking cessation Will taper/dc supplemental O2 as tolerated. ok with dc home JACK DE LUNA MD Apr 01, 2019 11:44
[2019-04-01 15:00] VITALS: BP 138/74
--- NOTE | 2019-04-01 16:12 | NUR ---
ASHLIE consulted for arranging to return back to [facility]. Chart reviewed and discussed with RN. Pt is known to Ifeanyi from previous visit. ASHLIE had assisted in placing pt in [place] but Sarah at [facility] reported they had discharged pt in early March due to problems. Yuko reported pt was given a discharge notice, was sent home with family and they will not take pt back. SW spoke with pt in room and she reports she was staying with friends but it did not workout. Pt requested assistance with placement but states she would like to go outside and smoke. Harrietr informed her [facility] is non-smoking facility and pt reported she will find a place to go tonight and needs to make a phone call. Ifeanyi had spoken with pt's son and discussed if pt is not compliant in staying in [place], Harrietr is not able to find placement. At this time, pt informed Harrietr, she had called her friend 'duran' and he had told her she could stay with him. Harrietr Spoke with 'Duran' who reported his name is Kartik Banegas, phone: [phone] and stated he lives at [facility], [place], [address] and pt is able to stay with him. Pt states it is a senior high rise and she plans to split her bill with Duran when she gets her SSI. Pt at this time does not want NH placement and is wanting to leave as soon as possible. Harrietr notified Physician and arranged transport via [employer] between [phone]. Ifeanyi left a voice mail to Wendy Lora at [facility] to initiate OP referral for services. RN notified.
--- NOTE | 2019-04-01 16:16 | PDOC3 ---
Discharge Summary Date of Admission: Mar 30, 2019 Date of Discharge: Apr 01, 2019 Follow-Up: 3-5 days Admitting Diagnosis comment: discharge dx Assessment/Plan suicidal intent needs psych eval refuses to stay for placement today ama major depression polysubstance abuse THC, COCAINE Hx traumatic brain injury behavioral disorder admitED to ICU pt was agitated, psychotic, required Haldol for sedation COPD s/p Left leg amputee Generalized weakness, fall risk MSK pains Left leg amputee Seizures chronic on Keppra Generalized weakness, fall risk sitter tsh smoking education provided 35 MIN PT EXAM, CHART REVIEW d/c planning , > 50% OF TIME SPENT WITH EXAM, CHART REVIEW, PT CARE COORDINATION Vitals Vitals Vital Signs Date Time Temp Pulse Resp B/P (MAP) Pulse Ox O2 Delivery O2 Flow Rate FiO2 04/01/19 08:00 Room Air 04/01/19 07:00 97.9 84 18 143/91 (108) 93 97.9 03/31/19 14:47 3.0 Physical Exam Physical Exam sad affect General: Alert, Oriented X3, Cooperative, No acute distress, mild distress, Other (not cooperative) Heart: Regular rate, Normal S1, Normal S2, No murmurs Lungs: Clear Abdomen: Normal bowel sounds, Soft Extremities: No clubbing, No cyanosis, Normal pulses, Other (left BKA) Skin: No breakdown, No significant lesion Assessment and Plan Assessmemt and Plan Problems Medical Problems: (1) Behavior disorder Status: Chronic (2) Bronchitis, acute, with bronchospasm Status: Acute (3) COPD exacerbation Status: Acute (4) Major depression Status: Chronic (5) Seizure disorder Status: Chronic (6) Suicidal ideation Status: Acute FINAL DIAGNOSIS Problems Medical Problems: (1) Behavior disorder Status: Chronic (2) Bronchitis, acute, with bronchospasm Status: Acute (3) COPD exacerbation Status: Acute (4) Major depression Status: Chronic (5) Seizure disorder Status: Chronic (6) Suicidal ideation Status: Acute Brief Hospital Course Ms. Fajardo is a 53 old [sex] who presented with [ ] CONDITION AT DISCHARGE: Comment (poor prognosis due to noncompliance) Discharge Medications Current Medications Ondansetron HCl (Zofran) 4 mg PRN Q8HRS PRN IV NAUSEA/VOMITING; Start 03/29/19 at 22:30; Stop 03/30/19 at 22:29; Status Cancel Lacosamide 100 mg/ Dextrose 60 ml @ 120 mls/hr 1X ONCE IV ; Start 03/29/19 at 22:45; Stop 03/29/19 at 23:14; Status Cancel Lorazepam (Ativan Inj) 2 mg 1X PRN IV seizure; Start 03/29/19 at 22:30; Status Cancel Albuterol/ Ipratropium (Duoneb) 3 ml 1X ONCE NEB ; Start 03/30/19 at 03:30; Stop 03/30/19 at 03:31; Status DC Prednisone (Prednisone) 60 mg 1X ONCE PO Last administered on 03/30/19at 05:29; Start 03/30/19 at 03:30; Stop 03/30/19 at 03:31; Status DC Ondansetron HCl (Zofran) 4 mg PRN Q8HRS PRN IV NAUSEA/VOMITING; Start 03/30/19 at 03:30; Stop 03/31/19 at 03:29; Status DC Sodium Chloride 1,000 ml @ 125 mls/hr Q8H IV Last administered on 03/30/19at 21:01; Start 03/30/19 at 03:30; Stop 03/31/19 at 03:29; Status DC Albuterol/ Ipratropium (Duoneb) 3 ml RTQID NEB Last administered on 03/30/19at 08:34; Start 03/30/19 at 08:00; Stop 03/30/19 at 08:55; Status DC Ceftriaxone Sodium (Rocephin) 1 gm 1X ONCE IVP Last administered on 03/30/19at 05:29; Start 03/30/19 at 05:30; Stop 03/30/19 at 05:31; Status DC Albuterol/ Ipratropium (Duoneb) 3 ml Q4HRS W/A NEB Last administered on 03/30/19at 18:16; Start 03/30/19 at 09:00; Stop 03/31/19 at 08:59; Status DC Potassium Chloride (Klor-Con) 40 meq 1X ONCE PO ; Start 03/30/19 at 09:00; Stop 03/30/19 at 09:02; Status DC Prednisone (Prednisone) 40 mg DAILY PO Last administered on 04/01/19at 09:00; Start 03/30/19 at 09:00 Haloperidol Lactate (Haldol Inj) 5 mg 1X ONCE IM Last administered on 03/30/19at 14:45; Start 03/30/19 at 10:00; Stop 03/30/19 at 10:01; Status DC Acetaminophen (Tylenol) 650 mg PRN Q6HRS PRN PO PAIN Last administered on 03/31/19at 19:16; Start 03/31/19 at 13:00 Active Scripts Active Prednisone 20 Mg Tablet 2 Tab PO DAILY Start this prescription tomorrow, Monday03/29/19 Proair Hfa Inhaler (Albuterol Sulfate) 8.5 Gm Hfa.aer.ad 1 Puff INH PRN Q6HRS PRN [place] 5-325 Tablet (Acetaminophen/Hydrocodone Bitart) 1 Each Tablet 1 Tab PO PRN Q6HRS PRN No drinking alcohol while taking this medication Keppra (Levetiracetam) 500 Mg Tablet 1 Tab PO BID 7 Days Reported No Known Medications Prior To Admisstion (Info) Each 1 Each Vital Signs Vital Signs Date Time Temp Pulse Resp B/P (MAP) Pulse Ox O2 Delivery O2 Flow Rate FiO2 04/01/19 15:00 97.8 82 18 138/74 (95) 94 Room Air 97.8 03/31/19 14:47 3.0 Labs Laboratory Tests Test 03/31/19 04:50 White Blood Count 12.5 x10^3/uL (4.0-11.0) Red Blood Count 4.72 x10^6/uL (3.50-5.40) Hemoglobin 13.6 g/dL (12.0-15.5) Hematocrit 43.3 % (36.0-47.0) Mean Corpuscular Volume 92 fL (79-100) Mean Corpuscular Hemoglobin 29 pg (25-35) Mean Corpuscular Hemoglobin Concent 32 g/dL (31-37) Red Cell Distribution Width 14.7 % (11.5-14.5) Platelet Count 179 x10^3/uL (140-400) Neutrophils (%) (Auto) 71 % (31-73) Lymphocytes (%) (Auto) 21 % (24-48) Monocytes (%) (Auto) 7 % (0-9) Eosinophils (%) (Auto) 1 % (0-3) Basophils (%) (Auto) 0 % (0-3) Neutrophils # (Auto) 8.9 x10^3/uL (1.8-7.7) Lymphocytes # (Auto) 2.6 x10^3/uL (1.0-4.8) Monocytes # (Auto) 0.9 x10^3/uL (0.0-1.1) Eosinophils # (Auto) 0.1 x10^3/uL (0.0-0.7) Basophils # (Auto) 0.0 x10^3/uL (0.0-0.2) Sodium Level 143 mmol/L (136-145) Potassium Level 4.3 mmol/L (3.5-5.1) Chloride Level 109 mmol/L (98-107) Carbon Dioxide Level 26 mmol/L (21-32) Anion Gap 8 (6-14) Blood Urea Nitrogen 15 mg/dL (7-20) Creatinine 0.5 mg/dL (0.6-1.0) Estimated GFR (Cockcroft-Gault) 155.0 BUN/Creatinine Ratio 30 (6-20) Glucose Level 88 mg/dL (70-99) Calcium Level 9.1 mg/dL (8.5-10.1) Total Bilirubin 0.3 mg/dL (0.2-1.0) Aspartate Amino Transf (AST/SGOT) 11 U/L (15-37) Alanine Aminotransferase (ALT/SGPT) 9 U/L (14-59) Alkaline Phosphatase 77 U/L (46-116) Total Protein 6.4 g/dL (6.4-8.2) Albumin 2.5 g/dL (3.4-5.0) Albumin/Globulin Ratio 0.6 (1.0-1.7) Thyroid Stimulating Hormone (TSH) 3.553 uIU/mL (0.358-3.74) Allergies Allergies Coded Allergies Type Severity Reaction Last Updated Verified I S O L A T I O N *CONTACT* Allergy Unknown 04/01/19 Yes No Known Medication Allergies Allergy Unknown 05/13/15 No Disposition/Orders: D/C to Home, Other (left ama) OH ORTIZ MD Apr 01, 2019 16:16
--- NOTE | 2019-04-01 16:18 | DISCH ---
DISCHARGE INSTRUCTIONS Condition on Discharge Condition on Discharge: Guarded Activity After Discharge Activity Instructions for Disc: Activity as tolerated Other activity instructions: LEFT BKA, WHEELCHAIR USE. Driving Instructions after Dis: Do not drive Weight Bearing Status after Di: As tolerated, Other, see below Diet after Discharge Diet after Discharge: Regular Diet Texture: Regular Liquid Texture: Thin Liquid Swallowing Supervision: None needed Wound Incision Care Wound/Incision Care: No wound care needed Checks after Discharge Checks after discharge: Check blood press - daily Contacting the DR. after DC Call your doctor for: go to [facility] Follow-Up Follow Up With: YOUR PRIMARY PROVIDER IN 1-2 WEEKS. Treatment/Equipment after DC Adaptive Equipment Issued: None OH ORTIZ MD Apr 01, 2019 16:18
--- NOTE | 2019-04-01 17:00 | NUR ---
DISCHARGE INSTRUCTIONS GIVEN INCLUDING INFORMING PATIENT TO FOLLOW UP AT [facility] (PATIENT AGREED), SALINE LOCK REMOVED AND PATIENT PLACED HER BELONGINGS IN BAGS FOR DISCHARGE. PATIENT AWAITING TRANSPORT PER [facility] BY [employer].
--- NOTE | 2019-04-01 17:35 | NUR ---
PATIENT LEAVES THE UNIT PER HER PERSONAL W/C, EMOTIONAL SUPPORT GIVEN, FOLLOW UP APPOINTMENTS ENCOURAGED.
[2019-04-01 18:10] LABS: GC PROBE Negative (Negative)
== END 2019-04-01 17:35 | disposition left against medical advice (07) | DRG 191 ==
LOC: ER 20:28 → 1 WEST ICU 03-30 03:37 → 5 SOUTH 03-30 15:57
PROVIDERS: ADMIT Internal Medicine; ATTEND Internal Medicine
DX: J44.1 Chronic obstructive pulmonary disease with (acute) exacerbation (principal); F02.81 Dementia in other diseases classified elsewhere, unspecified severity, with behavioral disturbance; R45.851 Suicidal ideations; F23 Brief psychotic disorder; J20.9 Acute bronchitis, unspecified; J44.0 Chronic obstructive pulmonary disease with (acute) lower respiratory infection; Z91.81 History of falling; F12.10 Cannabis abuse, uncomplicated; F14.10 Cocaine abuse, uncomplicated; F17.210 Nicotine dependence, cigarettes, uncomplicated; F32.9 Major depressive disorder, single episode, unspecified; G31.09 Other frontotemporal neurocognitive disorder; G40.909 Epilepsy, unspecified, not intractable, without status epilepticus; I73.9 Peripheral vascular disease, unspecified; Z90.710 Acquired absence of both cervix and uterus; Z91.19 Patient's noncompliance with other medical treatment and regimen; Z59.0 Homelessness; Z71.6 Tobacco abuse counseling; Z53.21 Procedure and treatment not carried out due to patient leaving prior to being seen by health care provider
CPT/HCPCS: 36415; 71045; 80053; 80307; 84443; 85025; 87491; 87591; 87641; 93005; 94640; 94760; G0480; J0696; J1630; J7030; J7512; J7620; 99285-25; G0378

== ENCOUNTER 2019-04-17 11:58 | Inpatient (IN) | payer OTHER ==
[~2019-04-17] VITALS: Ht 157.5 cm; Wt 65.3 kg
[2019-04-17] MEDS ORDERED: levETIRAcetam 1,500 MG in IV DEXTROSE 5% 100ML 100 ML IV ONE (12:15)
[2019-04-17] MEDS ORDERED: THIAMINE 100 MG TABLET. PO STA (12:15)
[2019-04-17] MEDS ORDERED: IV NORMAL SALINE 1000ML BAG 1,000 ML IV ONE (12:15)
[2019-04-17] MEDS ORDERED: ONDANSETRON PF 4 MG/2 ML VIAL. IV ONE (12:15)
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
[2019-04-17 12:33] LABS: BILIRUBIN,URINE NEGATIVE (NEG); CLARITY,URINE CLEAR; COLOR,URINE YELLOW; NITRITE,URINE NEGATIVE (NEG); PROTEIN,URINE NEGATIVE (NEG-TRACE); UROBILINOGEN,URINE 0.2 mg/dL (0.2 mg/dL)
[2019-04-17 12:41] LABS: SQUAMOUS EPITHELIAL CELL,UR MOD /LPF
[2019-04-17 12:42] LABS: BARBITURATES NEG (NEG); BENZODIAZEPINES NEG (NEG); CANNABINOIDS NEG (NEG); COCAINE NEG (NEG); METHADONE NEG (NEG); OPIATES NEG (NEG); PHENCYCLIDINE NEG (NEG)
[2019-04-17 12:43] LABS: BACTERIA,URINE FEW /HPF (0-FEW)
[2019-04-17 12:45] LABS: AMPHETAMINE/METHAMPHETAMINE NEG (NEG)
[2019-04-17] MEDS: FOLIC ACID 1 MG TABLET. PO SCH (13:08)
[2019-04-17] MEDS ORDERED: diphenhydrAMINE 50 MG/ML VIAL IVP ONE (13:30)
[2019-04-17 14:51] LABS: BASO # 0.1 x10^3/uL (0.0-0.2); BASO % 1 % (0-3); EOS # 0.1 x10^3/uL (0.0-0.7); EOS % 1 % (0-3); HEMOGLOBIN 14.4 g/dL (12.0-15.5); LYMPH # 1.9 x10^3/uL (1.0-4.8); LYMPH % 23 % (24-48); MEAN CORPUSCULAR HEMOGLOBIN 30 pg (25-35); MEAN CORPUSCULAR HGB CONC 33 g/dL (31-37); MEAN CORPUSCULAR VOLUME 91 fL (79-100); MONO # 0.6 x10^3/uL (0.0-1.1); MONO % 7 % (0-9); NEUT # 5.4 x10^3/uL (1.8-7.7); NEUT % 68 % (31-73); PLATELET COUNT 163 x10^3/uL (140-400); RED BLOOD COUNT 4.85 x10^6/uL (3.50-5.40); RED CELL DISTRIBUTION WIDTH 14.4 % (11.5-14.5); WHITE BLOOD COUNT 8.1 x10^3/uL (4.0-11.0)
[2019-04-17 15:00] LABS: CALCIUM 9.3 mg/dL (8.5-10.1); CREATININE 0.5 mg/dL (0.6-1.0); POTASSIUM 4.9 mmol/L (3.5-5.1); PROTHROMBIN TIME PATIENT 13.2 SEC (11.7-14.0)
[2019-04-17 15:05] LABS: ETHANOL < 10 mg/dL (0-10); SALIC < 2.8 mg/dL (2.8-20.0)
[2019-04-17 15:06] LABS: ACETAMIN < 2.0 mcg/ml (10-30); ALBUMIN 3.1 g/dL (3.4-5.0); ALBUMIN/GLOBULIN RATIO 0.7 (1.0-1.7); TOTAL BILIRUBIN 0.1 mg/dL (0.2-1.0); TOTAL PROTEIN 7.3 g/dL (6.4-8.2)
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
[2019-04-17] MEDS ORDERED: ONDANSETRON PF 4 MG/2 ML VIAL. IV PRN ×2 (18:00→21:15)
[2019-04-17 19:10] VITALS: BP 108/47
[2019-04-17] MEDS: IV NORMAL SALINE 1000ML BAG 1,000 ML IV SCH (20:25)
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
[2019-04-17] MEDS ORDERED: guaiFENesin ORAL 200 MG/10 ML LIQUID. PO PRN (21:15)
[2019-04-17] MEDS ORDERED: DOCUSATE SODIUM 100 MG CAPSULE. PO PRN (21:15)
[2019-04-17] MEDS ORDERED: cloNIDine HCL 0.1 MG TABLET PO PRN (21:15)
[2019-04-17] MEDS ORDERED: ALBUTEROL SULFATE 2.5 MG/3 ML NEBU. INH PRN (21:15)
[2019-04-17] MEDS ORDERED: 0.9 % SODIUM CHLORIDE 10 ML DISP.SYRIN. IV PRN (21:15)
[2019-04-17] MEDS ORDERED: ACETAMINOPHEN 650 MG SUPP.RECT. PR PRN (21:15)
[2019-04-17] MEDS ORDERED: MULTIVIT INFUSN,ADULT 4,VIT K 10 ML, THIAMINE INJ 100 MG, FOLIC ACID INJ 1 MG in IV NOR... IV ONE (21:30)
[2019-04-18] MEDS: levETIRAcetam 500 MG TABLET PO SCH ×3 (00:33→19:18)
[2019-04-18 03:00] VITALS: BP 114/56
[2019-04-18] MEDS: IV NORMAL SALINE 1000ML BAG 1,000 ML IV SCH ×3 (04:00→15:55)
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
[2019-04-18 07:00] VITALS: BP 118/66
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
--- NOTE | 2019-04-18 09:00 | NUR ---
ASHLIE following pt for dc planning. Chart reviewed and pt is known to SWer from previous admission. ASHLIE phoned PAT team for assessment and evaluation due to SI. Ted will come in to see pt today.
--- NOTE | 2019-04-18 09:01 | NUR ---
IP: Pt was mrsa screen + on 03/30/19. Pt to be in contact precautions until there are 2 negative screens 7 days apart. Obtain screen this admission and initiate Nozin/CHG decolonization.
[2019-04-18] MEDS: ENOXAPARIN 40 MG/0.4 ML SYRINGE. SQ SCH ×2 (09:12→09:17)
[2019-04-18] MEDS: FOLIC ACID 1 MG TABLET. PO SCH (09:12)
[2019-04-18 11:00] VITALS: BP 121/75
[2019-04-18 13:45] LABS: BASO % 0 % (0-3); EOS # 0.1 x10^3/uL (0.0-0.7); EOS % 1 % (0-3); HEMATOCRIT 41.2 % (36.0-47.0); HEMOGLOBIN 13.2 g/dL (12.0-15.5); LYMPH # 2.4 x10^3/uL (1.0-4.8); LYMPH % 27 % (24-48); MEAN CORPUSCULAR HEMOGLOBIN 29 pg (25-35); MEAN CORPUSCULAR HGB CONC 32 g/dL (31-37); MEAN CORPUSCULAR VOLUME 92 fL (79-100); MONO # 0.6 x10^3/uL (0.0-1.1); MONO % 7 % (0-9); NEUT # 5.7 x10^3/uL (1.8-7.7); NEUT % 64 % (31-73); PLATELET COUNT 165 x10^3/uL (140-400); RED BLOOD COUNT 4.48 x10^6/uL (3.50-5.40); RED CELL DISTRIBUTION WIDTH 14.7 % (11.5-14.5); WHITE BLOOD COUNT 8.9 x10^3/uL (4.0-11.0)
[2019-04-18 13:47] LABS: BARBITURATES NEG (NEG); BENZODIAZEPINES NEG (NEG); CANNABINOIDS NEG (NEG); COCAINE NEG (NEG); METHADONE NEG (NEG); OPIATES NEG (NEG); PHENCYCLIDINE NEG (NEG)
[2019-04-18 13:48] LABS: AMPHETAMINE/METHAMPHETAMINE NEG (NEG)
[2019-04-18 13:58] LABS: CALCIUM 8.4 mg/dL (8.5-10.1); CREATININE 0.7 mg/dL (0.6-1.0); GFR 105.1; POTASSIUM 4.2 mmol/L (3.5-5.1)
--- NOTE | 2019-04-18 14:41 | NUR ---
ASHLIE following pt. Pt seen by PAT team today and still active SI with no plan. ASHLIE phoned and faxed referral to [facility], phone: [phone], fax: [phone]. Pt acceptance and admission pending. Pt is currently wanting to leave and being verbally aggressive with staff. ASHLIE pagezahida Jean. Will continue to continue follow. Addendum: 04/18/19 at 1539 by MIGUEL DAILEY ASHLIE following pt. [facility] declined pt stating they are not able to meet with pt's needs. Discussed with Ted and referral is faxed to [facility], phone: [phone], fax: [phone]. Spoke with Kamryn and they are currently full, she will have admission look at referral after beds open. Will continue to follow. Discussed with RN.
[2019-04-18 15:00] VITALS: BP 108/63
--- NOTE | 2019-04-18 18:44 | NUR ---
Pt continues to be indecisive about demanding to leave AMA vs staying and seeking treatment. IV in no longer functioning. Pt not willing to let us restart IV. Samara with PAT team will come and reassess situation. Spoke to Dr Saldaña and she does not want pt to leave AMA since she had suicidal thoughts earlier today. Received prn medications for agitation. Nursing gaming floor supervisor notified.
[2019-04-18] MEDS ORDERED: HALOPERIDOL LACTATE 5 MG/ML VIAL. IVP PRN (18:45)
[2019-04-18 18:59] VITALS: BP 111/67
[2019-04-18] MEDS: ACETAMINOPHEN 325 MG TABLET. PO PRN (19:18)
[2019-04-18] MEDS ORDERED: ZIPRASIDONE IM 20 MG VIAL. IM ONE (19:30)
[2019-04-18] MEDS: LORazepam 0.5 MG TABLET PO PRN (21:23)
[2019-04-18 22:30] VITALS: BP 95/67
[2019-04-19] MEDS: LORazepam 0.5 MG TABLET PO PRN ×2 (01:44→06:34)
[2019-04-19] MEDS: ACETAMINOPHEN 325 MG TABLET. PO PRN ×2 (01:47→09:45)
[2019-04-19 02:45] VITALS: BP 109/57
[2019-04-19 07:04] VITALS: BP 141/83
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
--- NOTE | 2019-04-19 09:18 | NUR ---
PT/ OT request for orders Screen completed. Recommend PT/ OT eval and treat. Please order if you agree. Domonique Munoz, SPT
[2019-04-19] MEDS: FOLIC ACID 1 MG TABLET. PO SCH (09:40)
[2019-04-19] MEDS: levETIRAcetam 500 MG TABLET PO SCH (09:41)
[2019-04-19] MEDS: ENOXAPARIN 40 MG/0.4 ML SYRINGE. SQ SCH (09:43)
[2019-04-19 11:04] VITALS: BP 154/76
--- NOTE | 2019-04-19 11:31 | NUR ---
SW following pt. Spoke with Chin, at [facility]- they are still at capacity but expect few discharges. Clinicals will be reviewed once bed opens. Ted from PAT team will see pt today to re-eval for SI.
[2019-04-19 13:01] VITALS: BP 141/76
--- NOTE | 2019-04-19 14:12 | EKG ---
[facility] [address] [place] [address] Test Date: 2019-04-19 Test Time: 14:01:10 Pat Name: HUAN HARRELL Department: Room: 652 1 Gender: F Hospice Admitting Clerk: : [id number] Requested By: OH ORTIZ Order Number: [id number] Reading MD: Measurements Intervals [place] Rate: 86 P: 60 OK: 136 QRS: 27 QRSD: 70 T: 36 QT: 352 QTc: 424 Interpretive Statements SINUS RHYTHM LEFT ATRIAL ABNORMALITY ABNORMAL ECG RI6.01 Unconfirmed report Compared to ECG 03/29/2019 20:57:03 Atrial abnormality now present Sinus tachycardia no longer present
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
[2019-04-19] MEDS ORDERED: Folic Acid PO (14:23)
--- NOTE | 2019-04-19 14:24 | DISCH ---
DISCHARGE INSTRUCTIONS Condition on Discharge Condition on Discharge: Guarded Activity After Discharge Activity Instructions for Disc: Activity as tolerated Driving Instructions after Dis: Do not drive Weight Bearing Status after Di: As tolerated, Other, see below Diet after Discharge Diet after Discharge: Cardiac, Regular Diet Texture: Regular Liquid Texture: Thin Liquid Swallowing Supervision: None needed Wound Incision Care Wound/Incision Care: No wound care needed Checks after Discharge Checks after discharge: Check blood press - daily Contacting the DR. after DC Call your doctor for: go to [facility] mental Treatment/Equipment after DC Adaptive Equipment Issued: None Warfarin Follow-Up Warfarin Follow UP: TRANSFER TO [facility] BY AMBULANCE [place] ORTIZ MD Apr 19, 2019 14:24
--- NOTE | 2019-04-19 14:58 | NUR ---
ASHLIE following pt. Spoke with Chin at [facility]. Pt is accepted under Dr. Luna. JESSIE requested for EKG (policy) and vitals. Both faxed to intake team by RN. ASHLIE arranged transport via [facility] at 1500. Pt aware of plans and agreeable with discharge disposition. Packet on chart and discussed with RN.
--- NOTE | 2019-04-19 15:19 | NUR ---
Discharge Note: HUAN HARRELL [address] [place] [address] Discharge instructions and discharge home medications reviewed with Other facility and a copy given. All questions have been answered and understanding verbalized. The following instructions and handouts were given: FOLLOW UP INSTRUCTIONS, ACTIVITY LEVELS, AND MEDICATION LISTS. Discontinued lines and drains: Peripheral IV DISCONTINUED AND CATHETER intact. Patient discharged to [facility] with Ambulance Personnel via Stretcher.
== END 2019-04-19 15:15 | DRG 605 ==
LOC: ER 11:58 → 6 SOUTH 17:01
PROVIDERS: ADMIT Family Medicine; ATTEND Family Medicine
DX: S21.119A Laceration without foreign body of unspecified front wall of thorax without penetration into thoracic cavity, initial encounter (principal); F02.81 Dementia in other diseases classified elsewhere, unspecified severity, with behavioral disturbance; F12.10 Cannabis abuse, uncomplicated; F14.10 Cocaine abuse, uncomplicated; F17.210 Nicotine dependence, cigarettes, uncomplicated; F32.9 Major depressive disorder, single episode, unspecified; G31.09 Other frontotemporal neurocognitive disorder; G93.89 Other specified disorders of brain; I73.9 Peripheral vascular disease, unspecified; J44.9 Chronic obstructive pulmonary disease, unspecified; X78.9XXA Intentional self-harm by unspecified sharp object, initial encounter; Z90.710 Acquired absence of both cervix and uterus; Z87.820 Personal history of traumatic brain injury; Z91.81 History of falling; Z71.6 Tobacco abuse counseling; Z89.612 Acquired absence of left leg above knee
CPT/HCPCS: 36415; 70450; 80048; 80053; 80307; 80329; 81001; 83735; 85025; 85610; 85730; 93005; 94760; 96365; 96375; G0480; J1200; J1650; J1953; J2060; J2405; J7030; 99285-25; G0378

== ENCOUNTER 2019-09-14 20:10 | Emergency (ER) | payer OTHER ==
[~2019-09-14] VITALS: Ht 170.2 cm; Wt 100.0 kg
[2019-09-14 20:10] VITALS: BP 103/52
[~2019-09-14 20:10] MED LIST changes: +Folic Acid PO
--- NOTE | 2019-09-14 21:14 | RAD ---
Exam: Chest one view INDICATION: Altered mental status TECHNIQUE: Frontal view of the chest Comparisons: 03/29/2019 FINDINGS: The cardiomediastinal silhouette and pulmonary vessels are within normal limits. Patchy airspace disease in the right infrahilar lung. No pleural effusion. IMPRESSION: Right basilar airspace disease, may represent developing consolidative process. All of imaging posttreatment to ensure resolution is recommended. Electronically signed by: Ingrid Mccloud MD (09/14/2019 9:11 PM) [id number]
[2019-09-14] MEDS ORDERED: MULTIVIT INFUSN,ADULT 4,VIT K 10 ML, THIAMINE INJ 100 MG, FOLIC ACID INJ 1 MG in IV NOR... IV ONE (21:30)
--- NOTE | 2019-09-14 22:27 | PHYS DOC ---
Past Medical History Past Medical History: COPD, Diabetes-Type II, Seizure Additional Past Medical Histor: BULLET IN HEAD,FRONTAL DEMENTIA,PVD,TBI,IMPULSE DISORDER Past Surgical History: Other Additional Past Surgical Histo: Left leg amputation Smoking Status: Current Every Day Smoker Alcohol Use: None Drug Use: Cocaine, Marijuana, Methamphetamine Adult General Chief Complaint Chief Complaint: ALTERED MENTAL STATUS HPI HPI Patient is a 54 year old female with history of diabetes type 2, hypertension, left [id number] amputation, who presents to the ED today to be evaluated for lethargy and shortness of breath. Patient was apparently picked from the niece's house with the symptoms. Patient is currently awake alert and oriented x3. She states she from a senior living in [facility], she states she is in town with her family celebrating her birthday which was yesterday. She reports having a couple alcoholic drinks and using some drugs. Review of Systems Review of Systems Constitutional: Denies fever or chills [] Eyes: Denies change in visual acuity, redness, or eye pain [] HENT: Denies nasal congestion or sore throat [] Respiratory: Reports shortness of breath. Denies cough Cardiovascular: No additional information not addressed in HPI [] GI: Denies abdominal pain, nausea, vomiting, bloody stools or diarrhea [] : Denies dysuria or hematuria [] Musculoskeletal: Denies back pain or joint pain [] Integument: Denies rash or skin lesions [] Neurologic: Reports lethargy. Denies headache, focal weakness or sensory changes [] All other systems were reviewed and found to be within normal limits, except as documented in this note. Current Medications Current Medications Current Medications Medications (Trade) Dose Ordered Sig/[facility] Start Time Stop Time Status Last Admin Dose Admin Multivitamins 10 ml/Thiamine HCl 100 mg/Folic Acid 1 mg/Sodium Chloride 1,011.2 ml @ 1,000.088 mls/hr 1X ONCE 09/14/19 21:30 09/14/19 22:30 Allergies Allergies Allergies Coded Allergies Type Severity Reaction Last Updated Verified I S O L A T I O N *CONTACT* Allergy Unknown 04/01/19 Yes No Known Medication Allergies Allergy Unknown 05/13/15 No Physical Exam Physical Exam Constitutional: Well developed, well nourished, no acute distress, non-toxic appearance. [] HENT: Normocephalic, atraumatic, bilateral external ears normal, oropharynx moist, no oral exudates, nose normal. [] Eyes: PERRLA, EOMI, conjunctiva normal, no discharge. [] Neck: Normal range of motion, no tenderness, supple, no stridor. [] Cardiovascular:Heart rate regular rhythm, no murmur [] Lungs & Thorax: Diminished breath sounds Abdomen: Bowel sounds normal, soft, no tenderness, no masses, no pulsatile masses. [] Skin: Warm, dry, no erythema, no rash. [] Back: No tenderness, no CVA tenderness. [] Extremities: No tenderness, no cyanosis, no clubbing, ROM intact, no edema. left AKA noted Neurologic: Appears sleepy, alert and oriented X 3, normal motor function, normal sensory function, no focal deficits noted. [] Psychologic: Affect normal, judgement normal, mood normal. [] Current Patient Data Vital Signs Vital Signs Date Time Temp Pulse Resp B/P (MAP) Pulse Ox O2 Delivery O2 Flow Rate FiO2 09/14/19 20:10 97.9 110 42 103/52 (69) 91 Nasal Cannula 7.0 97.9 EKG EKG [] Radiology/Procedures Radiology/Procedures []PROCEDURE: PORTABLE CHEST 1V Exam: Chest one view INDICATION: Altered mental status TECHNIQUE: Frontal view of the chest Comparisons: 03/29/2019 FINDINGS: The cardiomediastinal silhouette and pulmonary vessels are within normal limits. Patchy airspace disease in the right infrahilar lung. No pleural effusion. IMPRESSION: Right basilar airspace disease, may represent developing consolidative process. All of imaging posttreatment to ensure resolution is recommended. Electronically signed by: Ed Dubose MD (09/14/2019 9:11 PM) [id number] DICTATED and SIGNED BY: ED DUBOSE MD DATE: 09/14/192110 Course & Med Decision Making Course & Med Decision Making Pertinent Labs and Imaging studies reviewed. (See chart for details) This is a 54-year-old female patient presenting to the ED today to be evaluated for lethargy and shortness of breath. Patient arrives in the ED by EMS, she is refusing care. She is refusing labs, refusing to give urine. She states she needs to sleep. She reports her birthday was yesterday and she had a celebration with family and friends which included alcohol intake and some drugs. RN informed me patient signed out AGAINST MEDICAL ADVICE. She was taken to CAT scan with the RN, she refused the CAT scan stating she needs to go home. RN tr ied to explain to patient she is very sick and she should wait for her testing to be done and possibly be admitted. She refused. Patient's son was in the waiting room was notified by RN patient is refusing care. Apparently the son replied that "have her sign the form and i am aready to pick her up" he called several times and told the RN he is in a hurry to go with patient. He took the mother and they left. Dragon Disclaimer Dragon Disclaimer This electronic medical record was generated, in whole or in part, using a voice recognition dictation system. Departure Departure Impression: Primary Impression: COPD exacerbation Disposition: AGAINST MEDICAL ADVICE Condition: STABLE Referrals: NO PCP (PCP) DORA ROQUE APRN Sep 14, 2019 22:27
== END 2019-09-14 21:20 | disposition left against medical advice (07) ==
LOC: ER 20:10
DX: J44.1 Chronic obstructive pulmonary disease with (acute) exacerbation (principal); E11.9 Type 2 diabetes mellitus without complications; I10 Essential (primary) hypertension; I73.9 Peripheral vascular disease, unspecified; G31.09 Other frontotemporal neurocognitive disorder; F02.80 Dementia in other diseases classified elsewhere, unspecified severity, without behavioral disturbance, psychotic disturbance, mood disturbance, and anxiety; Z87.820 Personal history of traumatic brain injury; F17.200 Nicotine dependence, unspecified, uncomplicated; Z91.041 Radiographic dye allergy status
CPT/HCPCS: 71045; 99284-25